=== PATIENT | male | born 1945 | race Caucasian/White ===

== ENCOUNTER 2020-12-10 22:27 | Inpatient (IN) | payer MEDICARE ==
[~2020-12-10] VITALS: Ht 177.8 cm; Wt 86.8 kg
[2020-12-11] MEDS ORDERED: ONDANSETRON 4MG INJ IVP ONE (00:30)
[2020-12-11] MEDS ORDERED: 0.9%NACL 1000ML 1,000 ML IV ONE ×2 (00:30→04:00)
[2020-12-11] MEDS ORDERED: MORPHINE 2 MG SYG IVP ONE (00:30)
[2020-12-11 00:45] LABS: BASOPHILS % (AUTO) 0.7 % (0.0-5.0); EOSINOPHILS % (AUTO) 0.1 % (0.0-8.0); HEMATOCRIT 36.7 % (42-54); LYMPHOCYTES % (AUTO) 15.9 % (21.0-51.0); MEAN CORPUSCULAR HEMOGLOBIN 30.5 pg (27.0-33.0); MEAN CORPUSCULAR HGB CONC 33.8 g/dL (32.0-36.0); MEAN CORPUSCULAR VOLUME 90.2 fL (79-99); MONOCYTES % (AUTO) 4.5 % (3.0-13.0); NEUTROPHILS % (AUTO) 78.5 % (40.0-77.0); PLATELET COUNT (AUTO) 339 K/uL (130-400); RED BLOOD CELL COUNT(AUTO) 4.07 MIL/uL (4.50-6.20); RED CELL DISTRIBUTION WIDTH 12.6 % (11.0-15.5); WHITE BLOOD COUNT (AUTO) 7.3 K/uL (4.8-10.8)
[2020-12-11 01:01] LABS: CREATININE 1.6 mg/dL (0.5-1.5); POTASSIUM 4.2 mmol/L (3.5-5.1)
[2020-12-11 01:05] LABS: ALBUMIN 3.5 g/dL (3.5-5.0); BILIRUBIN,TOTAL 0.5 mg/dL (0.2-1.0)
[2020-12-11 02:34] LABS: APPEARANCE,URINE Clear (CLEAR); BILIRUBIN,URINE Negative (NEGATIVE); COLOR,URINE Dark Yellow (YELLOW); GLUCOSE, URINE (UA) Negative (NEGATIVE); KETONES,URINE 40 mg/dL (NEGATIVE); LEUKOCYTE ESTERASE ,URINE Negative (NEGATIVE); NITRATE,URINE Negative (NEGATIVE); OCCULT BLOOD,URINE Negative (NEGATIVE); PROTEIN,URINE POS 1+ mg/dL (NEGATIVE)
[2020-12-11 02:49] LABS: BACTERIA,URINE None Seen /HPF (None Seen); RBC,URINE 0-1 /HPF (0-1); SQUAMOUS EPITHELIAL CELL,UR Few /HPF (0-2); WBC,URINE None Seen /HPF (0-1)
[2020-12-11 02:50] LABS: HYALINE CASTS, URINE 0-1 /LPF (0-1 /LPF)
[2020-12-11] MEDS ORDERED: ACETAMINOPHEN 325 MG TAB PO PRN ×2 (03:30)
[2020-12-11] MEDS ORDERED: MORPHINE 2 MG SYG IV PRN (03:30)
[2020-12-11] MEDS: 0.9%NACL 1000ML 1,000 ML IV SCH ×3 (03:44→23:30)
[2020-12-11] MEDS: ONDANSETRON 4MG INJ IV PRN ×2 (05:14→20:05)
[2020-12-11] MEDS ORDERED: MONT-39 PO (05:32)
[2020-12-11 07:27] LABS: HEMATOCRIT 37.1 % (42-54); MEAN CORPUSCULAR HEMOGLOBIN 30.7 pg (27.0-33.0); MEAN CORPUSCULAR HGB CONC 33.2 g/dL (32.0-36.0); MEAN CORPUSCULAR VOLUME 92.5 fL (79-99); RED BLOOD CELL COUNT(AUTO) 4.01 MIL/uL (4.50-6.20); RED CELL DISTRIBUTION WIDTH 12.6 % (11.0-15.5); WHITE BLOOD COUNT (AUTO) 8.1 K/uL (4.8-10.8)
[2020-12-11 07:37] LABS: CREATININE 1.4 mg/dL (0.5-1.5); POTASSIUM 3.8 mmol/L (3.5-5.1)
[2020-12-11] MEDS ORDERED: CHLORDIAZEPOXIDE HCL 25 MG CAP PO PRN (10:00)
[2020-12-11] MEDS ORDERED: LORAZEPAM 2 MG/ML 1 ML VIAL IVP PRN (10:00)
[2020-12-11 10:29] LABS: INR 0.99 (0.85-1.15); PROTHROMBIN TIME 10.8 SEC (9.6-11.6)
[2020-12-11] MEDS ORDERED: GLUCAGON 1MG KIT 1 MG ML IM PRN (10:30)
[2020-12-11] MEDS ORDERED: IPRATROPIUM/ALBUTEROL SULFATE 3 ML SOLUTION IH PRN (10:30)
[2020-12-11] MEDS ORDERED: DEXTROSE 50%-WATER 50 ML DISP.SYRIN IV PRN (10:30)
[2020-12-11] MEDS ORDERED: LIDOCAINE HCL-MPF 1% 2ML VIAL IV PRN (10:30)
[2020-12-11] MEDS ORDERED: THIAMINE HCL 100 MG/ML 2ML VIAL IVP SCH (10:30)
[2020-12-11 10:31] LABS: PARTIAL THROMBOPLASTIN TIME 28.5 SEC (26.3-35.5)
[2020-12-11] MEDS ORDERED: PANTOPRAZOLE 40 MG/VIAL ONE (10:55)
[2020-12-11] MEDS: M.V.I. IV [ADULT] 10 ML, FOLIC ACID 1 MG, THIAMINE HCL 100 MG in 0.9%NACL 1000ML 1,000 ML IV SCH (11:00)
[2020-12-11] MEDS: ZOSYN 3.375GM +NS 50ML IV SCH ×2 (11:22→18:34)
[2020-12-11] MEDS ORDERED: PEG 3350/NA SULF,BICARB,CL/KCL 4000 ML SOLN PO ONE (16:00)
[2020-12-11] MEDS ORDERED: 0.9%NACL 50ML 50 ML IV ONE (18:27)
[2020-12-11 22:20] VITALS: BP 146/62
[2020-12-12] VITALS (19 sets, daily range): BP systolic 117–159; BP diastolic 46–70
[2020-12-12] MEDS: ZOSYN 3.375GM +NS 50ML IV SCH ×2 (02:55→14:00)
[2020-12-12] MEDS: ONDANSETRON 4MG INJ IV PRN (05:58)
[2020-12-12] MEDS: THIAMINE HCL 100 MG/ML 2ML VIAL IVP SCH (08:58)
[2020-12-12] MEDS: PANTOPRAZOLE 40 MG/VIAL IVP SCH (08:58)
[2020-12-12] MEDS: M.V.I. IV [ADULT] 10 ML, FOLIC ACID 1 MG, THIAMINE HCL 100 MG in 0.9%NACL 1000ML 1,000 ML IV SCH (09:25)
[2020-12-12] MEDS ORDERED: PROPOFOL 10 MG/ML 20ML VIAL IV ONE (12:28)
[2020-12-12] MEDS: 0.9%NACL 1000ML 1,000 ML IV SCH ×2 (14:01→19:30)
[2020-12-13] VITALS: BP 127/49
[2020-12-13] MEDS: ZOSYN 3.375GM +NS 50ML IV SCH ×3 (02:33→17:12)
[2020-12-13 04:00] VITALS: BP 136/54
[2020-12-13 05:17] LABS: BASOPHILS % (AUTO) 0.6 % (0.0-5.0); EOSINOPHILS % (AUTO) 0.5 % (0.0-8.0); HEMATOCRIT 32.7 % (42-54); LYMPHOCYTES % (AUTO) 21.6 % (21.0-51.0); MEAN CORPUSCULAR HEMOGLOBIN 30.4 pg (27.0-33.0); MEAN CORPUSCULAR HGB CONC 33.3 g/dL (32.0-36.0); MEAN CORPUSCULAR VOLUME 91.1 fL (79-99); MONOCYTES % (AUTO) 10.6 % (3.0-13.0); NEUTROPHILS % (AUTO) 66.4 % (40.0-77.0); PLATELET COUNT (AUTO) 300 K/uL (130-400); RED BLOOD CELL COUNT(AUTO) 3.59 MIL/uL (4.50-6.20); WHITE BLOOD COUNT (AUTO) 6.3 K/uL (4.8-10.8)
[2020-12-13 05:29] LABS: CREATININE 1.5 mg/dL (0.5-1.5); POTASSIUM 3.7 mmol/L (3.5-5.1)
[2020-12-13 08:00] VITALS: BP 95/56
[2020-12-13] MEDS: M.V.I. IV [ADULT] 10 ML, FOLIC ACID 1 MG, THIAMINE HCL 100 MG in 0.9%NACL 1000ML 1,000 ML IV SCH (09:50)
[2020-12-13] MEDS: ENOXAPARIN SODIUM 40 MG/0.4 ML SYRINGE SQ SCH (09:50)
[2020-12-13] MEDS: THIAMINE HCL 100 MG/ML 2ML VIAL IVP SCH (10:23)
[2020-12-13] MEDS: PANTOPRAZOLE 40 MG/VIAL IVP SCH (10:23)
[2020-12-13] MEDS: 0.9%NACL 1000ML 1,000 ML IV SCH ×2 (10:30→17:08)
[2020-12-13 12:00] VITALS: BP 146/54
[2020-12-13 16:00] VITALS: BP 139/54
[2020-12-13 20:00] VITALS: BP 149/57
[2020-12-14] VITALS: BP 143/58
[2020-12-14] MEDS: 0.9%NACL 1000ML 1,000 ML IV SCH ×2 (01:30→10:24)
[2020-12-14] MEDS: ZOSYN 3.375GM +NS 50ML IV SCH ×3 (03:42→17:47)
[2020-12-14 04:00] VITALS: BP 141/54
[2020-12-14 08:00] VITALS: BP 132/67
[2020-12-14] MEDS: ENOXAPARIN SODIUM 40 MG/0.4 ML SYRINGE SQ SCH (08:42)
[2020-12-14] MEDS: PANTOPRAZOLE 40 MG/VIAL IVP SCH (08:42)
[2020-12-14] MEDS: THIAMINE HCL 100 MG/ML 2ML VIAL IVP SCH (08:42)
[2020-12-14] MEDS: M.V.I. IV [ADULT] 10 ML, FOLIC ACID 1 MG, THIAMINE HCL 100 MG in 0.9%NACL 1000ML 1,000 ML IV SCH (09:09)
[2020-12-14] MEDS ORDERED: PHARMACY COMMUNICATION MISC SCH (11:30)
[2020-12-14 12:00] VITALS: BP 136/51
[2020-12-14] MEDS ORDERED: CLINIMIX-E4.25%AA/D5+LYT2000ML 2,000 ML IV SCH (12:30)
[2020-12-14 16:00] VITALS: BP 147/53
[2020-12-14 20:00] VITALS: BP 117/51
[2020-12-14] MEDS: ONDANSETRON 4MG INJ IV PRN (22:45)
[2020-12-15] VITALS (7 sets, daily range): BP systolic 138–148; BP diastolic 56–85
[2020-12-15] MEDS ORDERED: METOCLOPRAMIDE 10 MG/2 ML VIAL ONE (00:39)
[2020-12-15] MEDS: METOCLOPRAMIDE 10 MG/2 ML VIAL IVP SCH ×3 (01:00→17:03)
[2020-12-15] MEDS: ZOSYN 3.375GM +NS 50ML IV SCH ×3 (02:26→17:03)
[2020-12-15 04:34] LABS: HEMATOCRIT 31.2 % (42-54); MEAN CORPUSCULAR HEMOGLOBIN 30.7 pg (27.0-33.0); MEAN CORPUSCULAR VOLUME 93.1 fL (79-99); RED BLOOD CELL COUNT(AUTO) 3.35 MIL/uL (4.50-6.20); RED CELL DISTRIBUTION WIDTH 13.2 % (11.0-15.5); WHITE BLOOD COUNT (AUTO) 3.9 K/uL (4.8-10.8)
[2020-12-15 04:56] LABS: CREATININE 1.4 mg/dL (0.5-1.5); POTASSIUM 3.7 mmol/L (3.5-5.1)
[2020-12-15] MEDS: PANTOPRAZOLE 40 MG/VIAL IVP SCH (08:44)
[2020-12-15] MEDS: THIAMINE HCL 100 MG/ML 2ML VIAL IVP SCH (08:44)
[2020-12-15] MEDS: ENOXAPARIN SODIUM 40 MG/0.4 ML SYRINGE SQ SCH (08:45)
[2020-12-15] MEDS ORDERED: CLINIMIX-E4.25%AA/D5+LYT2000ML 2,000 ML IV ONE (12:30)
[2020-12-15] MEDS: 0.9%NACL 1000ML 1,000 ML IV SCH (20:00)
[2020-12-16] VITALS (15 sets, daily range): BP systolic 94–167; BP diastolic 45–72
[2020-12-16] MEDS: METOCLOPRAMIDE 10 MG/2 ML VIAL IVP SCH ×3 (00:24→18:01)
[2020-12-16] MEDS: ZOSYN 3.375GM +NS 50ML IV SCH ×3 (03:01→18:01)
[2020-12-16] MEDS: 0.9%NACL 1000ML 1,000 ML IV SCH ×2 (03:38→18:02)
[2020-12-16 04:22] LABS: HEMATOCRIT 33.3 % (42-54); MEAN CORPUSCULAR HEMOGLOBIN 30.9 pg (27.0-33.0); MEAN CORPUSCULAR HGB CONC 33.3 g/dL (32.0-36.0); MEAN CORPUSCULAR VOLUME 92.8 fL (79-99); RED BLOOD CELL COUNT(AUTO) 3.59 MIL/uL (4.50-6.20); RED CELL DISTRIBUTION WIDTH 13.2 % (11.0-15.5); WHITE BLOOD COUNT (AUTO) 3.4 K/uL (4.8-10.8)
[2020-12-16 04:33] LABS: CREATININE 1.3 mg/dL (0.5-1.5); POTASSIUM 3.7 mmol/L (3.5-5.1)
[2020-12-16] MEDS: THIAMINE HCL 100 MG/ML 2ML VIAL IVP SCH (09:55)
[2020-12-16] MEDS: PANTOPRAZOLE 40 MG/VIAL IVP SCH (09:55)
[2020-12-16] MEDS ORDERED: LACTATED RINGERS 1000ML 1,000 ML IV ONE (11:40)
[2020-12-16] MEDS ORDERED: LIDOCAINE PF 100MG/5ML (2%) SYRINGE 5ML ONE (12:05)
[2020-12-16] MEDS ORDERED: SUCCINYLCHOLINE CHLORIDE 20 MG/ML 10 ML VIAL ONE (12:05)
[2020-12-16] MEDS ORDERED: MIDAZOLAM HCL 1 MG/ML 2ML VIAL ONE (12:05)
[2020-12-16] MEDS ORDERED: PROPOFOL 10 MG/ML 20ML VIAL IV ONE (12:05)
[2020-12-16] MEDS ORDERED: ONDANSETRON 4MG INJ ONE (12:05)
[2020-12-16] MEDS ORDERED: FENTANYL CITRATE PF 50 MCG/1 ML 2ML VIAL ONE (12:06)
[2020-12-16] MEDS ORDERED: ROCURONIUM 10MG/1ML SYR 10 MG/ML ML ONE ×2 (12:06→13:29)
[2020-12-16] MEDS ORDERED: ALBUMIN (HUMAN) 5% 250 ML IV ONE (12:53)
[2020-12-16] MEDS ORDERED: CEFAZOLIN SODIUM 1 GM VIAL ONE ×2 (13:26→13:30)
[2020-12-16] MEDS ORDERED: GENTAMICIN SULFATE 80 MG/2 ML VIAL ONE (13:36)
[2020-12-16 14:03] LABS: ABG BASE EXCESS -1.5 mmol/L (-2.0-3.0); ABG HCO3 22.6 mmol/L (21.0-28.0); ABG OXYGEN SATURATION 98.9 % (95.0-99.0); ABG PCO2 36 mmHg (35-48)
[2020-12-16] MEDS ORDERED: PROPOFOL 1000 MG/100 ML 100 ML IV ONE (15:09)
[2020-12-16] MEDS ORDERED: ONDANSETRON 4MG INJ IVP PRN (17:30)
[2020-12-16] MEDS ORDERED: NOREPINEPHRIN 4MG/NS 250ML 250 ML IV SCH (17:30)
[2020-12-16] MEDS ORDERED: METRONIDAZOLE 500 MG TABLET PO SCH (18:00)
[2020-12-16 18:14] LABS: ABG BASE EXCESS -5.7 mmol/L (-2.0-3.0); ABG HCO3 19.7 mmol/L (21.0-28.0); ABG OXYGEN SATURATION 94.7 % (95.0-99.0); ABG PCO2 38 mmHg (35-48)
[2020-12-16 18:35] LABS: CREATININE 1.5 mg/dL (0.5-1.5); MAGNESIUM 2.1 mg/dL (1.80-2.40); POTASSIUM 4.3 mmol/L (3.5-5.1)
[2020-12-16] MEDS: METRONIDAZOLE 500 MG TABLET PO SCH (20:00)
[2020-12-16] MEDS ORDERED: METRONIDAZOLE 500MG/100ML BAG 100 ML IVPB SCH ×2 (22:00)
[2020-12-17] VITALS (24 sets, daily range): BP systolic 101–164; BP diastolic 44–75
[2020-12-17] MEDS: ZOSYN 3.375GM +NS 50ML IV SCH ×3 (01:32→23:26)
[2020-12-17] MEDS: METOCLOPRAMIDE 10 MG/2 ML VIAL IVP SCH ×3 (01:33→17:50)
[2020-12-17] MEDS: PROPOFOL 1000 MG/100 ML 100 ML IV SCH ×5 (02:47→23:28)
[2020-12-17] MEDS: METRONIDAZOLE 500 MG TABLET PO SCH ×3 (03:41→20:00)
[2020-12-17] MEDS: 0.9%NACL 1000ML 1,000 ML IV SCH ×5 (03:41→23:27)
[2020-12-17 04:21] LABS: BASOPHILS % (AUTO) 0.4 % (0.0-5.0); HEMATOCRIT 35.5 % (42-54); LYMPHOCYTES % (AUTO) 14.1 % (21.0-51.0); MEAN CORPUSCULAR HEMOGLOBIN 30.8 pg (27.0-33.0); MEAN CORPUSCULAR HGB CONC 33.2 g/dL (32.0-36.0); MEAN CORPUSCULAR VOLUME 92.7 fL (79-99); MONOCYTES % (AUTO) 8.7 % (3.0-13.0); NEUTROPHILS % (AUTO) 76.1 % (40.0-77.0); PLATELET COUNT (AUTO) 309 K/uL (130-400); RED BLOOD CELL COUNT(AUTO) 3.83 MIL/uL (4.50-6.20); RED CELL DISTRIBUTION WIDTH 13.5 % (11.0-15.5); WHITE BLOOD COUNT (AUTO) 7.2 K/uL (4.8-10.8)
[2020-12-17 04:57] LABS: CREATININE 2.4 mg/dL (0.5-1.5); PHOSPHORUS 4.9 mg/dL (2.5-4.9); POTASSIUM 4.5 mmol/L (3.5-5.1)
[2020-12-17] MEDS: PANTOPRAZOLE 40 MG/VIAL IVP SCH (09:09)
[2020-12-17] MEDS: FLUCONAZOLE 200 MG/NS 100 ML 100 ML IV SCH (09:26)
[2020-12-17] MEDS ORDERED: 0.9%NACL 100ML 100 ML ONE (10:23)
[2020-12-17] MEDS: THIAMINE HCL 100 MG/ML 2ML VIAL IVP SCH (10:24)
[2020-12-17] MEDS ORDERED: MAGNESIUM CITRATE 296 ML SOLUTION PO SCH (12:30)
[2020-12-17] MEDS ORDERED: ALBUMIN (HUMAN) 5% 500 ML IV SCH (12:30)
[2020-12-17] MEDS ORDERED: LACTULOSE 20 GM/30 ML UDCUP PO SCH ×2 (14:30→19:00)
[2020-12-17] MEDS ORDERED: ZOSYN 3.375GM+NS 50ML 50 ML ONE (23:01)
[2020-12-18] VITALS (21 sets, daily range): BP systolic 84–136; BP diastolic 36–65
[2020-12-18] MEDS: 0.9%NACL 1000ML 1,000 ML IV SCH ×3 (02:00→05:33)
[2020-12-18] MEDS: METOCLOPRAMIDE 10 MG/2 ML VIAL IVP SCH ×3 (03:23→16:06)
[2020-12-18 03:55] LABS: HEMATOCRIT 25.7 % (42-54); MEAN CORPUSCULAR HGB CONC 32.7 g/dL (32.0-36.0); MEAN CORPUSCULAR VOLUME 94.8 fL (79-99); RED BLOOD CELL COUNT(AUTO) 2.71 MIL/uL (4.50-6.20); WHITE BLOOD COUNT (AUTO) 4.4 K/uL (4.8-10.8)
[2020-12-18] MEDS: METRONIDAZOLE 500 MG TABLET PO SCH (04:00)
[2020-12-18 04:09] LABS: CREATININE 3.6 mg/dL (0.5-1.5); MAGNESIUM 1.9 mg/dL (1.80-2.40); PHOSPHORUS 6.2 mg/dL (2.5-4.9); POTASSIUM 3.1 mmol/L (3.5-5.1)
[2020-12-18] MEDS: POTASSIUM CHLORIDE 20MEQ/100ML 100 ML IV PRN ×2 (05:16→05:33)
[2020-12-18 08:11] LABS: ABG BASE EXCESS -12.3 mmol/L (-2.0-3.0); ABG HCO3 12.6 mmol/L (21.0-28.0); ABG OXYGEN SATURATION 98.3 % (95.0-99.0); ABG PCO2 26 mmHg (35-48)
[2020-12-18] MEDS: PROPOFOL 1000 MG/100 ML 100 ML IV SCH ×4 (09:20→23:20)
[2020-12-18] MEDS: FLUCONAZOLE 200 MG/NS 100 ML 100 ML IV SCH (09:49)
[2020-12-18] MEDS: PANTOPRAZOLE 40 MG/VIAL IVP SCH (09:49)
[2020-12-18] MEDS: THIAMINE HCL 100 MG/ML 2ML VIAL IVP SCH (09:50)
[2020-12-18] MEDS: SODIUM BICARB 8.4% 50ML SYRING 150 MEQ in DEXTROSE 5%-WATER 850 ML IVP SCH ×2 (09:50→22:30)
[2020-12-18] MEDS ORDERED: ZOSYN 3.375GM+NS 50ML 50 ML ONE (12:34)
[2020-12-18] MEDS ORDERED: 0.9%NACL 50ML 50 ML IV ONE (12:34)
[2020-12-18] MEDS: ZOSYN 3.375GM +NS 50ML IV SCH (12:36)
[2020-12-18] MEDS: FENTANYL 2500MCG+NS 250ML IV.SOLN IV SCH (15:56)
[2020-12-18] MEDS ORDERED: LIDOCAINE PF 100MG/5ML (2%) SYRINGE 5ML ONE (17:25)
[2020-12-18] MEDS ORDERED: ROCURONIUM 10MG/1ML SYR 10 MG/ML ML ONE (17:26)
[2020-12-18] MEDS ORDERED: PROPOFOL 10 MG/ML 20ML VIAL IV ONE (17:26)
[2020-12-18] MEDS ORDERED: ONDANSETRON 4MG INJ ONE (17:26)
[2020-12-18] MEDS ORDERED: FENTANYL CITRATE PF 50 MCG/1 ML 5ML AMP IV ONE (17:27)
[2020-12-18 18:52] LABS: ABG BASE EXCESS -11.4 mmol/L (-2.0-3.0); ABG HCO3 14.9 mmol/L (21.0-28.0); ABG OXYGEN SATURATION 98.4 % (95.0-99.0); ABG PCO2 35 mmHg (35-48)
[2020-12-18] MEDS ORDERED: POTASSIUM CHLORIDE 20MEQ/100ML 100 ML IV ONE (18:56)
[2020-12-18] MEDS ORDERED: CEFAZOLIN SODIUM 1 GM VIAL ONE (19:00)
[2020-12-18] MEDS ORDERED: GENTAMICIN SULFATE 80 MG/2 ML VIAL ONE ×2 (19:00→19:53)
[2020-12-18] MEDS ORDERED: POTASSIUM CHLORIDE 20MEQ/100ML 200 ML IV ONE (19:18)
[2020-12-18] MEDS ORDERED: SODIUM BICARB 8.4% 50ML SYRINGE ONE ×2 (20:01→21:19)
[2020-12-18 20:12] LABS: ABG BASE EXCESS -9.8 mmol/L (-2.0-3.0); ABG HCO3 18.8 mmol/L (21.0-28.0); ABG OXYGEN SATURATION 89.7 % (95.0-99.0); ABG PCO2 54 mmHg (35-48)
[2020-12-18] MEDS ORDERED: PHENYLEPHRINE HCL 10 MG/ML 1ML VIAL IV ONE (21:16)
[2020-12-18 21:17] LABS: ABG BASE EXCESS -10.1 mmol/L (-2.0-3.0); ABG HCO3 17.9 mmol/L (21.0-28.0); ABG OXYGEN SATURATION 94.2 % (95.0-99.0); ABG PCO2 49 mmHg (35-48)
[2020-12-18] MEDS ORDERED: SODIUM BICARB 50MEQ 50ML VIAL 50 ML ONE ×2 (21:21→21:26)
[2020-12-18] MEDS ORDERED: FENTANYL CITRATE PF 50 MCG/1 ML 2ML VIAL ONE (21:42)
[2020-12-18] MEDS ORDERED: FUROSEMIDE 40MG VIAL ONE (22:28)
[2020-12-18 22:39] LABS: ABG BASE EXCESS -3.5 mmol/L (-2.0-3.0); ABG OXYGEN SATURATION 98.1 % (95.0-99.0); ABG PCO2 48 mmHg (35-48)
[2020-12-18 23:10] LABS: HEMATOCRIT 33.5 % (42-54); MEAN CORPUSCULAR HEMOGLOBIN 30.7 pg (27.0-33.0); MEAN CORPUSCULAR HGB CONC 32.8 g/dL (32.0-36.0); MEAN CORPUSCULAR VOLUME 93.6 fL (79-99); RED BLOOD CELL COUNT(AUTO) 3.58 MIL/uL (4.50-6.20); RED CELL DISTRIBUTION WIDTH 14.6 % (11.0-15.5); WHITE BLOOD COUNT (AUTO) 3.2 K/uL (4.8-10.8)
[2020-12-18 23:25] LABS: ALBUMIN 1.2 g/dL (3.5-5.0); BILIRUBIN,TOTAL 1.7 mg/dL (0.2-1.0); CREATININE 3.7 mg/dL (0.5-1.5); POTASSIUM 3.6 mmol/L (3.5-5.1); TOTAL PROTEIN, SERUM 3.7 g/dL (6.0-8.3)
[2020-12-19] VITALS (34 sets, daily range): BP systolic 88–174; BP diastolic 44–112
[2020-12-19 00:08] LABS: ABG BASE EXCESS -5.1 mmol/L (-2.0-3.0); ABG HCO3 20.2 mmol/L (21.0-28.0); ABG OXYGEN SATURATION 96.7 % (95.0-99.0); ABG PCO2 39 mmHg (35-48)
[2020-12-19] MEDS ORDERED: SODIUM BICARB 50MEQ 50ML VIAL 100 ML ONE (01:11)
[2020-12-19] MEDS ORDERED: SODIUM BICARB 50MEQ 50ML VIAL IV STA (01:11)
[2020-12-19] MEDS ORDERED: ZOSYN 3.375GM+NS 50ML 50 ML ONE (01:11)
[2020-12-19] MEDS: METOCLOPRAMIDE 10 MG/2 ML VIAL IVP SCH (01:18)
[2020-12-19] MEDS: ZOSYN 3.375GM +NS 50ML IV SCH ×2 (01:18→11:12)
[2020-12-19] MEDS ORDERED: VASOPRESSIN 40 UNITS in 0.9%NACL 50ML 40 ML IV SCH (01:30)
[2020-12-19] MEDS ORDERED: 0.9%NACL 50ML IV SCH (03:00)
[2020-12-19] MEDS ORDERED: CALCIUM GLUC 1GM/10ML VIAL IVPB SCH (03:00)
[2020-12-19] MEDS ORDERED: CALCIUM GLUC 1GM/10ML VIAL IVPB ONE (03:00)
[2020-12-19] MEDS ORDERED: 0.9%NACL 50ML IV ONE (03:00)
[2020-12-19 05:55] LABS: HEMATOCRIT 33.9 % (42-54); MEAN CORPUSCULAR HGB CONC 33.3 g/dL (32.0-36.0); MEAN CORPUSCULAR VOLUME 89.9 fL (79-99); RED BLOOD CELL COUNT(AUTO) 3.77 MIL/uL (4.50-6.20); RED CELL DISTRIBUTION WIDTH 15.1 % (11.0-15.5); WHITE BLOOD COUNT (AUTO) 6.1 K/uL (4.8-10.8)
[2020-12-19 06:09] LABS: ALBUMIN 1.2 g/dL (3.5-5.0); BILIRUBIN,TOTAL 1.7 mg/dL (0.2-1.0); CREATININE 3.9 mg/dL (0.5-1.5); POTASSIUM 3.5 mmol/L (3.5-5.1); TOTAL PROTEIN, SERUM 3.9 g/dL (6.0-8.3)
[2020-12-19] MEDS ORDERED: FUROSEMIDE 100MG VIAL IV SCH (08:00)
[2020-12-19] MEDS ORDERED: DEXTROSE 5 %-0.45 % NACL 1,000 ML IV SCH (08:00)
[2020-12-19] MEDS ORDERED: FUROSEMIDE 40MG VIAL ONE (08:26)
[2020-12-19] MEDS: HEPARIN 5,000 UNIT VIAL SQ SCH ×2 (08:38→20:01)
[2020-12-19] MEDS: PANTOPRAZOLE 40 MG/VIAL IVP SCH (08:38)
[2020-12-19] MEDS: THIAMINE HCL 100 MG/ML 2ML VIAL IVP SCH (08:38)
[2020-12-19] MEDS: FLUCONAZOLE 200 MG/NS 100 ML 100 ML IV SCH (08:38)
[2020-12-19] MEDS ORDERED: BUPIVACAINE/PF 0.25% 30ML VIAL IJ ONE (09:04)
[2020-12-19] MEDS: RENAL DOSE IV SCH ×3 (10:30→18:30)
[2020-12-19] MEDS: PHARMACY COMMUNICATION MISC SCH ×9 (10:30→18:30)
[2020-12-19 11:12] LABS: ABG BASE EXCESS 1.4 mmol/L (-2.0-3.0); ABG HCO3 25.8 mmol/L (21.0-28.0); ABG PCO2 40 mmHg (35-48)
[2020-12-19] MEDS: INSULIN HUMULIN R 100 UNIT/ML 3ML SQ SCH ×2 (11:43→16:04)
[2020-12-19] MEDS ORDERED: M.V.I. IV [ADULT] 10 ML in CLINIMIX-E 5%AA /D15%W 2000ML 2,000 ML IV SCH (12:00)
[2020-12-19] MEDS ORDERED: ALTEPLASE 2MG VIAL 2 MG/VIAL VIAL IVCATH SCH (12:00)
[2020-12-19] MEDS ORDERED: FAT EMULSIONS 20% 250ML 250 ML IV SCH (12:00)
[2020-12-19] MEDS ORDERED: FUROSEMIDE 40MG VIAL IV ONE (18:00)
[2020-12-19 20:18] LABS: CREATININE 4.4 mg/dL (0.5-1.5); POTASSIUM 3.4 mmol/L (3.5-5.1)
[2020-12-19 20:23] LABS: ALBUMIN 1.3 g/dL (3.5-5.0); BILIRUBIN,TOTAL 1.5 mg/dL (0.2-1.0); MAGNESIUM 1.9 mg/dL (1.80-2.40); TOTAL PROTEIN, SERUM 4.4 g/dL (6.0-8.3)
[2020-12-19] MEDS ORDERED: POTASSIUM CHLORIDE 10MEQ/100ML 10 MEQ/100 ML ML IV SCH (21:00)
[2020-12-19] MEDS ORDERED: MAGNESIUM 2GM PREMIX 50ML 50 ML IV SCH (21:00)
[2020-12-19] MEDS ORDERED: MAGNESIUM 2GM PREMIX 50ML 50 ML IV ONE (21:06)
[2020-12-19] MEDS ORDERED: POTASSIUM CHLORIDE 10MEQ/100ML 100 ML IV ONE (21:06)
[2020-12-20] VITALS (22 sets, daily range): BP systolic 101–181; BP diastolic 40–102
[2020-12-20] MEDS ORDERED: ZOSYN 3.375GM+NS 50ML 50 ML ONE (01:23)
[2020-12-20] MEDS: ZOSYN 3.375GM +NS 50ML IV SCH (01:25)
[2020-12-20] MEDS: INSULIN HUMULIN R 100 UNIT/ML 3ML SQ SCH ×5 (01:26→23:50)
[2020-12-20] MEDS: FENTANYL 2500MCG+NS 250ML IV.SOLN IV SCH (05:40)
[2020-12-20 05:55] LABS: MEAN CORPUSCULAR HEMOGLOBIN 30.5 pg (27.0-33.0); MEAN CORPUSCULAR HGB CONC 33.2 g/dL (32.0-36.0); MEAN CORPUSCULAR VOLUME 91.9 fL (79-99); RED BLOOD CELL COUNT(AUTO) 3.7 MIL/uL (4.50-6.20); RED CELL DISTRIBUTION WIDTH 15.3 % (11.0-15.5); WHITE BLOOD COUNT (AUTO) 8.6 K/uL (4.8-10.8)
[2020-12-20 06:16] LABS: ALBUMIN 1.2 g/dL (3.5-5.0); BILIRUBIN,TOTAL 1.3 mg/dL (0.2-1.0); CREATININE 4.8 mg/dL (0.5-1.5); MAGNESIUM 2.6 mg/dL (1.80-2.40); PHOSPHORUS 6.8 mg/dL (2.5-4.9); POTASSIUM 3.8 mmol/L (3.5-5.1); TOTAL PROTEIN, SERUM 4.5 g/dL (6.0-8.3)
[2020-12-20] MEDS: MEROPENEM 500 MG VIAL IVP SCH ×2 (06:48→17:13)
[2020-12-20 07:02] LABS: APPEARANCE,URINE Clear (CLEAR); BILIRUBIN,URINE Negative (NEGATIVE); COLOR,URINE Yellow (YELLOW); GLUCOSE, URINE (UA) Negative (NEGATIVE); KETONES,URINE Negative (NEGATIVE); LEUKOCYTE ESTERASE ,URINE Negative (NEGATIVE); NITRATE,URINE Negative (NEGATIVE); OCCULT BLOOD,URINE Small (NEGATIVE); PROTEIN,URINE Trace mg/dL (NEGATIVE); UROBILINOGEN,URINE 0.2 mg/dL (0.2-1.0)
[2020-12-20 07:12] LABS: BACTERIA,URINE Few /HPF (None Seen); RBC,URINE 0-1 /HPF (0-1); SQUAMOUS EPITHELIAL CELL,UR 0-2 /HPF (0-2); WBC,URINE 0-1 /HPF (0-1)
[2020-12-20 07:13] LABS: HYALINE CASTS, URINE 0-1 /LPF (0-1 /LPF)
[2020-12-20] MEDS ORDERED: FUROSEMIDE 40MG VIAL IV SCH (08:00)
[2020-12-20] MEDS: FLUCONAZOLE 200 MG/NS 100 ML 100 ML IV SCH (09:12)
[2020-12-20] MEDS: LINEZOLID 600 MG/ISO-OSM 300 ML IV SCH ×2 (09:13→17:13)
[2020-12-20] MEDS: THIAMINE HCL 100 MG/ML 2ML VIAL IVP SCH (09:13)
[2020-12-20] MEDS: PANTOPRAZOLE 40 MG/VIAL IVP SCH (09:13)
[2020-12-20] MEDS: HEPARIN 5,000 UNIT VIAL SQ SCH ×2 (09:14→20:26)
[2020-12-20] MEDS ORDERED: IOHEXOL-350 75 ML VIAL IV ONE (13:08)
[2020-12-20 19:30] LABS: ALBUMIN 1.1 g/dL (3.5-5.0); BILIRUBIN,TOTAL 1.4 mg/dL (0.2-1.0); CREATININE 5.2 mg/dL (0.5-1.5); MAGNESIUM 2.6 mg/dL (1.80-2.40); POTASSIUM 3.8 mmol/L (3.5-5.1); TOTAL PROTEIN, SERUM 4.2 g/dL (6.0-8.3)
[2020-12-20] MEDS ORDERED: M.V.I. IV [ADULT] 10 ML in CLINIMIX-E 5%AA /D15%W 2000ML 2,000 ML IV SCH (20:00)
[2020-12-20] MEDS: HYDROMORPHONE 1 MG INJ IVP PRN (20:38)
[2020-12-20] MEDS: POTASSIUM CHLORIDE 20MEQ/100ML 100 ML IV PRN (20:43)
[2020-12-20] MEDS ORDERED: METOPROLOL TARTRATE 1 MG/ML 5ML VIAL IV ONE ×2 (21:14→21:30)
[2020-12-20] MEDS ORDERED: METOPROLOL TARTRATE 1 MG/ML 5ML VIAL IV PRN (21:30)
[2020-12-21] VITALS (23 sets, daily range): BP systolic 110–180; BP diastolic 39–92
[2020-12-21 00:17] LABS: MAGNESIUM 2.6 mg/dL (1.80-2.40); POTASSIUM 4.1 mmol/L (3.5-5.1)
[2020-12-21] MEDS ORDERED: PROPOFOL 1000 MG/100 ML 100 ML IV SCH (03:00)
[2020-12-21] MEDS: PROPOFOL 1000 MG/100 ML 100 ML IV SCH (03:40)
[2020-12-21 04:24] LABS: HEMATOCRIT 32.6 % (42-54); MEAN CORPUSCULAR HEMOGLOBIN 29.8 pg (27.0-33.0); MEAN CORPUSCULAR HGB CONC 32.2 g/dL (32.0-36.0); MEAN CORPUSCULAR VOLUME 92.6 fL (79-99); RED BLOOD CELL COUNT(AUTO) 3.52 MIL/uL (4.50-6.20); RED CELL DISTRIBUTION WIDTH 15.3 % (11.0-15.5); WHITE BLOOD COUNT (AUTO) 7.4 K/uL (4.8-10.8)
[2020-12-21 04:46] LABS: ALBUMIN 1.2 g/dL (3.5-5.0); BILIRUBIN,TOTAL 1.5 mg/dL (0.2-1.0); CREATININE 5.5 mg/dL (0.5-1.5); MAGNESIUM 2.6 mg/dL (1.80-2.40); PHOSPHORUS 7.7 mg/dL (2.5-4.9); POTASSIUM 4.1 mmol/L (3.5-5.1); TOTAL PROTEIN, SERUM 4.6 g/dL (6.0-8.3)
[2020-12-21] MEDS: MEROPENEM 500 MG VIAL IVP SCH ×2 (06:18→19:57)
[2020-12-21] MEDS: INSULIN HUMULIN R 100 UNIT/ML 3ML SQ SCH ×3 (06:23→18:00)
[2020-12-21] MEDS: HYDROMORPHONE 0.5 MG SYG (0.5MG/0.5ML) IVP SCH (07:30)
[2020-12-21 08:14] LABS: ABG PCO2 46 mmHg (35-48)
[2020-12-21 08:15] LABS: ABG BASE EXCESS -0.4 mmol/L (-2.0-3.0); ABG HCO3 25.4 mmol/L (21.0-28.0); ABG OXYGEN SATURATION 97.6 % (95.0-99.0)
[2020-12-21] MEDS: PANTOPRAZOLE 40 MG/VIAL IVP SCH (08:47)
[2020-12-21] MEDS: LINEZOLID 600 MG/ISO-OSM 300 ML IV SCH ×2 (08:47→19:57)
[2020-12-21] MEDS: FLUCONAZOLE 200 MG/NS 100 ML 100 ML IV SCH (08:47)
[2020-12-21] MEDS: HEPARIN 5,000 UNIT VIAL SQ SCH ×2 (08:50→19:59)
[2020-12-21] MEDS: THIAMINE HCL 100 MG/ML 2ML VIAL IVP SCH (08:52)
[2020-12-21] MEDS: HYDROMORPHONE 1 MG INJ IVP PRN ×2 (14:17→21:26)
[2020-12-21] MEDS ORDERED: FUROSEMIDE 20MG VIAL IV ONE (15:00)
[2020-12-21] MEDS ORDERED: FUROSEMIDE 20MG VIAL ONE (16:21)
[2020-12-21] MEDS ORDERED: M.V.I. IV [ADULT] 10 ML in CLINIMIX-E 5%AA /D15%W 2000ML 2,000 ML IV SCH (17:30)
[2020-12-21] MEDS ORDERED: 0.9%NACL 50ML 50 ML IV ONE (19:52)
[2020-12-21] MEDS ORDERED: 0.9% NACL 500ML IV.SOLN 500 ML IV ONE (20:35)
[2020-12-22] VITALS (23 sets, daily range): BP systolic 138–166; BP diastolic 48–87
[2020-12-22 04:12] LABS: HEMATOCRIT 29.2 % (42-54); MEAN CORPUSCULAR HEMOGLOBIN 29.7 pg (27.0-33.0); MEAN CORPUSCULAR HGB CONC 32.9 g/dL (32.0-36.0); MEAN CORPUSCULAR VOLUME 90.4 fL (79-99); RED BLOOD CELL COUNT(AUTO) 3.23 MIL/uL (4.50-6.20); RED CELL DISTRIBUTION WIDTH 14.7 % (11.0-15.5)
[2020-12-22 04:30] LABS: CREATININE 5.7 mg/dL (0.5-1.5); MAGNESIUM 2.6 mg/dL (1.80-2.40); PHOSPHORUS 6.1 mg/dL (2.5-4.9); POTASSIUM 3.7 mmol/L (3.5-5.1)
[2020-12-22] MEDS: MEROPENEM 500 MG VIAL IVP SCH ×2 (05:47→17:18)
[2020-12-22] MEDS: POTASSIUM CHLORIDE 20MEQ/100ML 100 ML IV PRN (05:48)
[2020-12-22] MEDS: INSULIN HUMULIN R 100 UNIT/ML 3ML SQ SCH ×4 (06:00→18:00)
[2020-12-22] MEDS ORDERED: FUROSEMIDE 20MG VIAL IV ONE (06:00)
[2020-12-22] MEDS: HYDROMORPHONE 0.5 MG SYG (0.5MG/0.5ML) IVP SCH ×2 (07:30→14:54)
[2020-12-22 07:52] LABS: ABG BASE EXCESS 1.1 mmol/L (-2.0-3.0); ABG HCO3 25.6 mmol/L (21.0-28.0); ABG OXYGEN SATURATION 96.9 % (95.0-99.0); ABG PCO2 40 mmHg (35-48)
[2020-12-22 07:53] LABS: ABG BASE EXCESS -0.4 mmol/L (-2.0-3.0); ABG HCO3 25.4 mmol/L (21.0-28.0); ABG OXYGEN SATURATION 97.6 % (95.0-99.0); ABG PCO2 46 mmHg (35-48)
[2020-12-22] MEDS: LINEZOLID 600 MG/ISO-OSM 300 ML IV SCH ×2 (08:25→18:03)
[2020-12-22] MEDS: PANTOPRAZOLE 40 MG/VIAL IVP SCH (08:25)
[2020-12-22] MEDS: FLUCONAZOLE 200 MG/NS 100 ML 100 ML IV SCH (08:25)
[2020-12-22] MEDS: THIAMINE HCL 100 MG/ML 2ML VIAL IVP SCH (08:25)
[2020-12-22] MEDS: HEPARIN 5,000 UNIT VIAL SQ SCH ×2 (08:26→19:39)
[2020-12-22] MEDS: PHARMACY COMMUNICATION MISC SCH (08:27)
[2020-12-22] MEDS ORDERED: M.V.I. IV [ADULT] 10 ML in CLINIMIX-E 5%AA /D15%W 2000ML 2,000 ML IV SCH (18:30)
[2020-12-22] MEDS: HYDROMORPHONE 1 MG INJ IVP PRN (22:40)
[2020-12-23] VITALS (24 sets, daily range): BP systolic 127–179; BP diastolic 51–82
[2020-12-23] MEDS: HYDROMORPHONE 1 MG INJ IVP PRN ×5 (01:43→22:45)
[2020-12-23 03:47] LABS: BASOPHILS % (AUTO) 0.2 % (0.0-5.0); HEMATOCRIT 32.7 % (42-54); MEAN CORPUSCULAR HEMOGLOBIN 29.9 pg (27.0-33.0); MEAN CORPUSCULAR HGB CONC 32.4 g/dL (32.0-36.0); MEAN CORPUSCULAR VOLUME 92.4 fL (79-99); MONOCYTES % (AUTO) 2.3 % (3.0-13.0); NEUTROPHILS % (AUTO) 73.6 % (40.0-77.0); PLATELET COUNT (AUTO) 252 K/uL (130-400); RED BLOOD CELL COUNT(AUTO) 3.54 MIL/uL (4.50-6.20); RED CELL DISTRIBUTION WIDTH 14.7 % (11.0-15.5); WHITE BLOOD COUNT (AUTO) 9.2 K/uL (4.8-10.8)
[2020-12-23 04:14] LABS: ALBUMIN 1.2 g/dL (3.5-5.0); BILIRUBIN,TOTAL 2.1 mg/dL (0.2-1.0); CREATININE 6.1 mg/dL (0.5-1.5); MAGNESIUM 2.8 mg/dL (1.80-2.40); PHOSPHORUS 6.3 mg/dL (2.5-4.9); POTASSIUM 4.3 mmol/L (3.5-5.1); TOTAL PROTEIN, SERUM 4.8 g/dL (6.0-8.3)
[2020-12-23] MEDS: MEROPENEM 500 MG VIAL IVP SCH ×2 (05:35→17:01)
[2020-12-23] MEDS: METOPROLOL TARTRATE 1 MG/ML 5ML VIAL IV PRN (05:35)
[2020-12-23] MEDS: INSULIN HUMULIN R 100 UNIT/ML 3ML SQ SCH ×4 (05:45→18:00)
[2020-12-23] MEDS: LINEZOLID 600 MG/ISO-OSM 300 ML IV SCH ×2 (07:46→17:47)
[2020-12-23] MEDS: FLUCONAZOLE 200 MG/NS 100 ML 100 ML IV SCH (07:46)
[2020-12-23] MEDS: THIAMINE HCL 100 MG/ML 2ML VIAL IVP SCH (07:46)
[2020-12-23] MEDS: PANTOPRAZOLE 40 MG/VIAL IVP SCH (07:46)
[2020-12-23] MEDS: HEPARIN 5,000 UNIT VIAL SQ SCH ×2 (07:48→19:58)
[2020-12-23] MEDS ORDERED: M.V.I. IV [ADULT] 10 ML in CLINIMIX-E 5%AA /D15%W 2000ML 2,000 ML IV SCH ×2 (09:00→18:30)
[2020-12-23] MEDS ORDERED: FUROSEMIDE 40MG VIAL IV SCH (16:00)
[2020-12-23] MEDS: IPRATROPIUM/ALBUTEROL SULFATE 3 ML SOLUTION IH SCH (18:00)
[2020-12-24] VITALS (25 sets, daily range): BP systolic 133–185; BP diastolic 42–94
[2020-12-24] MEDS: HYDROMORPHONE 1 MG INJ IVP PRN ×4 (03:56→20:51)
[2020-12-24 04:04] LABS: MEAN CORPUSCULAR HEMOGLOBIN 30.1 pg (27.0-33.0); MEAN CORPUSCULAR HGB CONC 32.9 g/dL (32.0-36.0); MEAN CORPUSCULAR VOLUME 91.4 fL (79-99); RED BLOOD CELL COUNT(AUTO) 3.39 MIL/uL (4.50-6.20); RED CELL DISTRIBUTION WIDTH 14.7 % (11.0-15.5); WHITE BLOOD COUNT (AUTO) 8.6 K/uL (4.8-10.8)
[2020-12-24 04:17] LABS: ALBUMIN 1.1 g/dL (3.5-5.0); BILIRUBIN,TOTAL 1.9 mg/dL (0.2-1.0); CREATININE 5.7 mg/dL (0.5-1.5); POTASSIUM 4.1 mmol/L (3.5-5.1); TOTAL PROTEIN, SERUM 4.6 g/dL (6.0-8.3)
[2020-12-24] MEDS: METOPROLOL TARTRATE 1 MG/ML 5ML VIAL IV PRN (05:09)
[2020-12-24] MEDS: MEROPENEM 500 MG VIAL IVP SCH ×2 (05:16→18:32)
[2020-12-24] MEDS: IPRATROPIUM/ALBUTEROL SULFATE 3 ML SOLUTION IH SCH ×4 (06:00→18:00)
[2020-12-24] MEDS: INSULIN HUMULIN R 100 UNIT/ML 3ML SQ SCH ×4 (06:00→18:00)
[2020-12-24] MEDS: HYDROMORPHONE 0.5 MG SYG (0.5MG/0.5ML) IVP SCH (07:30)
[2020-12-24] MEDS: LINEZOLID 600 MG/ISO-OSM 300 ML IV SCH ×2 (08:24→18:32)
[2020-12-24] MEDS: HEPARIN 5,000 UNIT VIAL SQ SCH ×2 (08:25→20:27)
[2020-12-24] MEDS: THIAMINE HCL 100 MG/ML 2ML VIAL IVP SCH (08:41)
[2020-12-24] MEDS: FLUCONAZOLE 200 MG/NS 100 ML 100 ML IV SCH (08:41)
[2020-12-24] MEDS: PANTOPRAZOLE 40 MG/VIAL IVP SCH (08:41)
[2020-12-24] MEDS: METOCLOPRAMIDE 10 MG/2 ML VIAL IVP SCH ×2 (17:24→20:24)
[2020-12-24] MEDS ORDERED: CLINIMIX-E 5%AA /D15%W 2000ML 2,000 ML IV SCH (21:30)
[2020-12-24] MEDS ORDERED: M.V.I. IV [ADULT] 10 ML in CLINIMIX-E 5%AA /D15%W 2000ML 2,000 ML IV SCH (22:00)
[2020-12-25] VITALS (15 sets, daily range): BP systolic 134–176; BP diastolic 48–77
[2020-12-25] MEDS: HYDROMORPHONE 1 MG INJ IVP PRN ×2 (01:46→14:34)
[2020-12-25 04:02] LABS: BASOPHILS % (AUTO) 0.2 % (0.0-5.0); HEMATOCRIT 29.7 % (42-54); LYMPHOCYTES % (AUTO) 8.1 % (21.0-51.0); MEAN CORPUSCULAR HEMOGLOBIN 29.3 pg (27.0-33.0); MEAN CORPUSCULAR HGB CONC 32.3 g/dL (32.0-36.0); MEAN CORPUSCULAR VOLUME 90.5 fL (79-99); MONOCYTES % (AUTO) 2.8 % (3.0-13.0); NEUTROPHILS % (AUTO) 84.9 % (40.0-77.0); PLATELET COUNT (AUTO) 259 K/uL (130-400); RED BLOOD CELL COUNT(AUTO) 3.28 MIL/uL (4.50-6.20); RED CELL DISTRIBUTION WIDTH 14.6 % (11.0-15.5); WHITE BLOOD COUNT (AUTO) 9.1 K/uL (4.8-10.8)
[2020-12-25 04:20] LABS: ALBUMIN 1.1 g/dL (3.5-5.0); BILIRUBIN,TOTAL 2.2 mg/dL (0.2-1.0); CREATININE 6.3 mg/dL (0.5-1.5); POTASSIUM 4.8 mmol/L (3.5-5.1); TOTAL PROTEIN, SERUM 4.7 g/dL (6.0-8.3)
[2020-12-25 04:23] LABS: PLATELET MORPHOLOGY PLT CLUMPS PRESENT
[2020-12-25] MEDS: INSULIN HUMULIN R 100 UNIT/ML 3ML SQ SCH ×4 (05:38→17:23)
[2020-12-25] MEDS: IPRATROPIUM/ALBUTEROL SULFATE 3 ML SOLUTION IH SCH ×4 (06:00→18:00)
[2020-12-25] MEDS: MEROPENEM 500 MG VIAL IVP SCH ×2 (06:07→17:23)
[2020-12-25] MEDS: METOCLOPRAMIDE 10 MG/2 ML VIAL IVP SCH ×3 (06:17→21:44)
[2020-12-25] MEDS: LINEZOLID 600 MG/ISO-OSM 300 ML IV SCH ×2 (06:17→20:05)
[2020-12-25] MEDS: HYDROMORPHONE 0.5 MG SYG (0.5MG/0.5ML) IVP SCH (07:30)
[2020-12-25] MEDS: THIAMINE HCL 100 MG/ML 2ML VIAL IVP SCH (09:50)
[2020-12-25] MEDS: FLUCONAZOLE 200 MG/NS 100 ML 100 ML IV SCH (09:50)
[2020-12-25] MEDS: PANTOPRAZOLE 40 MG/VIAL IVP SCH (09:50)
[2020-12-25] MEDS: HEPARIN 5,000 UNIT VIAL SQ SCH ×2 (09:50→20:08)
[2020-12-25] MEDS: METOPROLOL TARTRATE 1 MG/ML 5ML VIAL IV PRN (22:06)
[2020-12-26] VITALS (11 sets, daily range): BP systolic 137–176; BP diastolic 50–82
[2020-12-26] MEDS: INSULIN HUMULIN R 100 UNIT/ML 3ML SQ SCH ×4 (00:06→18:00)
[2020-12-26] MEDS: HYDROMORPHONE 0.5 MG SYG (0.5MG/0.5ML) IVP SCH (01:10)
[2020-12-26] MEDS: IPRATROPIUM/ALBUTEROL SULFATE 3 ML SOLUTION IH SCH ×4 (06:00→18:00)
[2020-12-26] MEDS: MEROPENEM 500 MG VIAL IVP SCH ×2 (06:13→16:58)
[2020-12-26] MEDS: LINEZOLID 600 MG/ISO-OSM 300 ML IV SCH ×2 (06:14→16:58)
[2020-12-26] MEDS: METOCLOPRAMIDE 10 MG/2 ML VIAL IVP SCH ×4 (06:14→21:00)
[2020-12-26] MEDS: METOPROLOL TARTRATE 1 MG/ML 5ML VIAL IV PRN (06:14)
[2020-12-26] MEDS: HEPARIN 5,000 UNIT VIAL SQ SCH ×2 (08:21→20:00)
[2020-12-26] MEDS: PANTOPRAZOLE 40 MG/VIAL IVP SCH (08:21)
[2020-12-26] MEDS: THIAMINE HCL 100 MG/ML 2ML VIAL IVP SCH (08:22)
[2020-12-26] MEDS: FLUCONAZOLE 200 MG/NS 100 ML 100 ML IV SCH (08:22)
[2020-12-26] MEDS ORDERED: M.V.I. IV [ADULT] 10 ML in CLINIMIX-E 5%AA /D15%W 2000ML 2,000 ML IV NR (09:00)
[2020-12-26 19:40] LABS: ABG HCO3 20.8 mmol/L (21.0-28.0); ABG PCO2 28 mmHg (35-48)
[2020-12-26] MEDS ORDERED: CLINIMIX-E 5%AA /D15%W 2000ML 2,000 ML IV SCH (20:30)
[2020-12-27] VITALS (36 sets, daily range): BP systolic 142–175; BP diastolic 48–90
[2020-12-27] MEDS: IPRATROPIUM/ALBUTEROL SULFATE 3 ML SOLUTION IH SCH
[2020-12-27] MEDS: METOPROLOL TARTRATE 1 MG/ML 5ML VIAL IV PRN (00:32)
[2020-12-27 05:14] LABS: HEMATOCRIT 33.1 % (42-54); MEAN CORPUSCULAR HEMOGLOBIN 28.9 pg (27.0-33.0); MEAN CORPUSCULAR HGB CONC 32.6 g/dL (32.0-36.0); MEAN CORPUSCULAR VOLUME 88.5 fL (79-99); RED BLOOD CELL COUNT(AUTO) 3.74 MIL/uL (4.50-6.20); RED CELL DISTRIBUTION WIDTH 14.6 % (11.0-15.5); WHITE BLOOD COUNT (AUTO) 9.7 K/uL (4.8-10.8)
[2020-12-27 05:38] LABS: ALBUMIN 1.4 g/dL (3.5-5.0); BILIRUBIN,TOTAL 2.9 mg/dL (0.2-1.0); CREATININE 6.5 mg/dL (0.5-1.5); POTASSIUM 5.5 mmol/L (3.5-5.1); TOTAL PROTEIN, SERUM 5.5 g/dL (6.0-8.3)
[2020-12-27] MEDS: INSULIN HUMULIN R 100 UNIT/ML 3ML SQ SCH ×4 (06:00→18:00)
[2020-12-27] MEDS: LINEZOLID 600 MG/ISO-OSM 300 ML IV SCH ×2 (06:10→18:44)
[2020-12-27] MEDS: MEROPENEM 500 MG VIAL IVP SCH ×2 (06:10→18:44)
[2020-12-27] MEDS: METOCLOPRAMIDE 10 MG/2 ML VIAL IVP SCH ×3 (06:10→18:44)
[2020-12-27 06:44] LABS: PROTHROMBIN TIME 10.9 SEC (9.6-11.6)
[2020-12-27 06:45] LABS: PARTIAL THROMBOPLASTIN TIME 30.8 SEC (26.3-35.5)
[2020-12-27] MEDS: HEPARIN 5,000 UNIT VIAL SQ SCH ×2 (08:00→20:00)
[2020-12-27] MEDS: PANTOPRAZOLE 40 MG/VIAL IVP SCH (08:11)
[2020-12-27] MEDS: THIAMINE HCL 100 MG/ML 2ML VIAL IVP SCH (08:11)
[2020-12-27] MEDS: FLUCONAZOLE 200 MG/NS 100 ML 100 ML IV SCH (08:11)
[2020-12-27] MEDS ORDERED: HEPARIN 5,000 UNIT VIAL IV SCH (17:30)
[2020-12-27 18:21] LABS: HEMATOCRIT 30.6 % (42-54)
[2020-12-27 18:34] LABS: HEMOGLOBIN A1C 6.2 % (4.0-6.0)
[2020-12-27 18:36] LABS: ALBUMIN 1.5 g/dL (3.5-5.0); CREATININE 0.7 mg/dL (0.5-1.5)
[2020-12-27 18:56] LABS: % IRON SATURATION 33.1 % (30-44)
[2020-12-27] MEDS ORDERED: CLINIMIX-E 5%AA /D15%W 2000ML 2,000 ML IV SCH (20:30)
[2020-12-28] VITALS (24 sets, daily range): BP systolic 143–180; BP diastolic 47–68
[2020-12-28] MEDS: METOPROLOL TARTRATE 1 MG/ML 5ML VIAL IV PRN (02:24)
[2020-12-28] MEDS: METOCLOPRAMIDE 10 MG/2 ML VIAL IVP SCH ×5 (02:25→20:10)
[2020-12-28 05:02] LABS: CREATININE 4.3 mg/dL (0.5-1.5); HEMATOCRIT 28.8 % (42-54); MEAN CORPUSCULAR HEMOGLOBIN 30.3 pg (27.0-33.0); MEAN CORPUSCULAR HGB CONC 33.7 g/dL (32.0-36.0); POTASSIUM 4.5 mmol/L (3.5-5.1); RED BLOOD CELL COUNT(AUTO) 3.2 MIL/uL (4.50-6.20); RED CELL DISTRIBUTION WIDTH 14.5 % (11.0-15.5); WHITE BLOOD COUNT (AUTO) 8.7 K/uL (4.8-10.8)
[2020-12-28] MEDS: INSULIN HUMULIN R 100 UNIT/ML 3ML SQ SCH ×4 (06:00→17:35)
[2020-12-28] MEDS: MEROPENEM 500 MG VIAL IVP SCH ×2 (07:19→17:39)
[2020-12-28] MEDS: LINEZOLID 600 MG/ISO-OSM 300 ML IV SCH ×2 (07:19→18:58)
[2020-12-28] MEDS: HEPARIN 5,000 UNIT VIAL SQ SCH ×2 (08:47→20:10)
[2020-12-28] MEDS: FLUCONAZOLE 200 MG/NS 100 ML 100 ML IV SCH (08:47)
[2020-12-28] MEDS: PANTOPRAZOLE 40 MG/VIAL IVP SCH (08:48)
[2020-12-28] MEDS: THIAMINE HCL 100 MG/ML 2ML VIAL IVP SCH (08:48)
[2020-12-28] MEDS ORDERED: MORPHINE 2 MG SYG ONE (16:54)
[2020-12-28] MEDS: IPRATROPIUM/ALBUTEROL SULFATE 3 ML SOLUTION IH SCH (19:11)
[2020-12-28] MEDS: MORPHINE 2 MG SYG IVP PRN (20:11)
[2020-12-29] VITALS (34 sets, daily range): BP systolic 120–177; BP diastolic 46–74
[2020-12-29] MEDS ORDERED: IPRATROPIUM/ALBUTEROL SULFATE 3 ML SOLUTION IH SCH
[2020-12-29] MEDS: IPRATROPIUM/ALBUTEROL SULFATE 3 ML SOLUTION IH SCH ×4 (00:13→18:48)
[2020-12-29] MEDS: MORPHINE 2 MG SYG IVP PRN ×2 (01:58→14:26)
[2020-12-29 03:29] LABS: HEMATOCRIT 26.4 % (42-54); MEAN CORPUSCULAR HEMOGLOBIN 30.5 pg (27.0-33.0); MEAN CORPUSCULAR HGB CONC 33.7 g/dL (32.0-36.0); MEAN CORPUSCULAR VOLUME 90.4 fL (79-99); RED BLOOD CELL COUNT(AUTO) 2.92 MIL/uL (4.50-6.20); RED CELL DISTRIBUTION WIDTH 14.6 % (11.0-15.5)
[2020-12-29 05:22] LABS: ALBUMIN 1.4 g/dL (3.5-5.0); BILIRUBIN,TOTAL 1.3 mg/dL (0.2-1.0); CREATININE 4.6 mg/dL (0.5-1.5); POTASSIUM 4.8 mmol/L (3.5-5.1); TOTAL PROTEIN, SERUM 5.1 g/dL (6.0-8.3)
[2020-12-29] MEDS: LINEZOLID 600 MG/ISO-OSM 300 ML IV SCH ×4 (05:48→21:00)
[2020-12-29] MEDS: INSULIN HUMULIN R 100 UNIT/ML 3ML SQ SCH ×4 (05:48→18:00)
[2020-12-29] MEDS: MEROPENEM 500 MG VIAL IVP SCH ×3 (05:48→20:39)
[2020-12-29] MEDS ORDERED: TAMSULOSIN HCL 0.4 MG CAP.ER.24H PO SCH (06:00)
[2020-12-29] MEDS: METOCLOPRAMIDE 10 MG/2 ML VIAL IVP SCH ×4 (07:30→20:39)
[2020-12-29] MEDS: FLUCONAZOLE 200 MG/NS 100 ML 100 ML IV SCH (12:52)
[2020-12-29] MEDS: PANTOPRAZOLE 40 MG/VIAL IVP SCH (12:53)
[2020-12-29] MEDS ORDERED: CLINIMIX-E 5%AA /D15%W 2000ML 2,000 ML IV NR ×2 (12:54→13:30)
[2020-12-29] MEDS: THIAMINE HCL 100 MG/ML 2ML VIAL IVP SCH (12:55)
[2020-12-29] MEDS: HEPARIN 5,000 UNIT VIAL SQ SCH ×2 (12:56→20:47)
[2020-12-30] VITALS (28 sets, daily range): BP systolic 127–165; BP diastolic 48–69
[2020-12-30] MEDS: LINEZOLID 600 MG/ISO-OSM 300 ML IV SCH ×3 (00:05→20:50)
[2020-12-30] MEDS: IPRATROPIUM/ALBUTEROL SULFATE 3 ML SOLUTION IH SCH ×4 (00:39→18:52)
[2020-12-30] MEDS: MORPHINE 2 MG SYG IVP PRN ×2 (03:43→06:10)
[2020-12-30 03:48] LABS: BASOPHILS % (AUTO) 0.4 % (0.0-5.0); EOSINOPHILS % (AUTO) 2.4 % (0.0-8.0); LYMPHOCYTES % (AUTO) 14.1 % (21.0-51.0); MEAN CORPUSCULAR HEMOGLOBIN 30.2 pg (27.0-33.0); MEAN CORPUSCULAR HGB CONC 33.2 g/dL (32.0-36.0); MEAN CORPUSCULAR VOLUME 90.9 fL (79-99); MONOCYTES % (AUTO) 7.8 % (3.0-13.0); NEUTROPHILS % (AUTO) 74.4 % (40.0-77.0); PLATELET COUNT (AUTO) 306 K/uL (130-400); RED BLOOD CELL COUNT(AUTO) 3.08 MIL/uL (4.50-6.20); RED CELL DISTRIBUTION WIDTH 14.4 % (11.0-15.5); WHITE BLOOD COUNT (AUTO) 8.1 K/uL (4.8-10.8)
[2020-12-30 04:02] LABS: CREATININE 3.4 mg/dL (0.5-1.5); POTASSIUM 4.6 mmol/L (3.5-5.1)
[2020-12-30 04:10] LABS: HEPATITIS Bs ANTIGEN SCREEN P Negative (Negative)
[2020-12-30] MEDS: INSULIN HUMULIN R 100 UNIT/ML 3ML SQ SCH ×4 (06:00→18:00)
[2020-12-30 06:42] LABS: ABG BASE EXCESS -0.1 mmol/L (-2.0-3.0); ABG HCO3 21.8 mmol/L (21.0-28.0); ABG OXYGEN SATURATION 97.1 % (95.0-99.0); ABG PCO2 29 mmHg (35-48)
[2020-12-30] MEDS: HEPARIN 5,000 UNIT VIAL SQ SCH ×2 (08:29→20:52)
[2020-12-30] MEDS: THIAMINE HCL 100 MG/ML 2ML VIAL IVP SCH (09:00)
[2020-12-30] MEDS: FLUCONAZOLE 200 MG/NS 100 ML 100 ML IV SCH (09:00)
[2020-12-30] MEDS ORDERED: TAMSULOSIN HCL 0.4 MG CAP.ER.24H PO SCH (09:00)
[2020-12-30] MEDS: MEROPENEM 500 MG VIAL IVP SCH ×2 (09:00→20:49)
[2020-12-30] MEDS: PANTOPRAZOLE 40 MG/VIAL IVP SCH (09:00)
[2020-12-30] MEDS ORDERED: DIATR MEGLU/DIATRIZOATE SODIUM 30 ML BOTTLE ONE (09:29)
[2020-12-30] MEDS: METOCLOPRAMIDE 10 MG/2 ML VIAL IVP SCH ×3 (11:40→18:43)
[2020-12-30] MEDS ORDERED: CLINIMIX-E 5%AA /D15%W 2000ML 2,000 ML IV SCH (19:00)
[2020-12-31] VITALS (34 sets, daily range): BP systolic 121–167; BP diastolic 45–82
[2020-12-31] MEDS: IPRATROPIUM/ALBUTEROL SULFATE 3 ML SOLUTION IH SCH ×4 (00:40→18:33)
[2020-12-31 04:15] LABS: BASOPHILS % (AUTO) 0.5 % (0.0-5.0); EOSINOPHILS % (AUTO) 3.4 % (0.0-8.0); HEMATOCRIT 27.5 % (42-54); LYMPHOCYTES % (AUTO) 19.3 % (21.0-51.0); MEAN CORPUSCULAR HEMOGLOBIN 29.8 pg (27.0-33.0); MEAN CORPUSCULAR HGB CONC 33.1 g/dL (32.0-36.0); MEAN CORPUSCULAR VOLUME 90.2 fL (79-99); MONOCYTES % (AUTO) 11.6 % (3.0-13.0); NEUTROPHILS % (AUTO) 64.8 % (40.0-77.0); PLATELET COUNT (AUTO) 339 K/uL (130-400); RED BLOOD CELL COUNT(AUTO) 3.05 MIL/uL (4.50-6.20)
[2020-12-31 04:38] LABS: ALBUMIN 1.5 g/dL (3.5-5.0); CREATININE 2.6 mg/dL (0.5-1.5); POTASSIUM 4.2 mmol/L (3.5-5.1); TOTAL PROTEIN, SERUM 5.2 g/dL (6.0-8.3)
[2020-12-31] MEDS: INSULIN HUMULIN R 100 UNIT/ML 3ML SQ SCH ×2 (06:00)
[2020-12-31] MEDS: METOCLOPRAMIDE 10 MG/2 ML VIAL IVP SCH ×2 (06:02)
[2020-12-31] MEDS: LINEZOLID 600 MG/ISO-OSM 300 ML IV SCH ×2 (08:12→21:14)
[2020-12-31] MEDS: FLUCONAZOLE 200 MG/NS 100 ML 100 ML IV SCH (08:12)
[2020-12-31] MEDS: MEROPENEM 500 MG VIAL IVP SCH ×2 (08:13→21:14)
[2020-12-31] MEDS: PANTOPRAZOLE 40 MG/VIAL IVP SCH (08:13)
[2020-12-31] MEDS: HEPARIN 5,000 UNIT VIAL SQ SCH ×2 (08:14→21:17)
[2020-12-31] MEDS: THIAMINE HCL 100 MG/ML 2ML VIAL IVP SCH (08:24)
[2020-12-31] MEDS ORDERED: ARTIFICAL TEARS SOL 15 ML OU PRN (19:30)
[2020-12-31] MEDS ORDERED: CLINIMIX-E 5%AA /D15%W 2000ML 2,000 ML IV SCH (19:30)
[2021-01-01] VITALS (10 sets, daily range): BP systolic 130–170; BP diastolic 51–67
[2021-01-01] MEDS: IPRATROPIUM/ALBUTEROL SULFATE 3 ML SOLUTION IH SCH ×2 (00:35→06:43)
[2021-01-01 03:47] LABS: BASOPHILS % (AUTO) 0.6 % (0.0-5.0); EOSINOPHILS % (AUTO) 3.6 % (0.0-8.0); HEMATOCRIT 28.3 % (42-54); LYMPHOCYTES % (AUTO) 21.2 % (21.0-51.0); MEAN CORPUSCULAR HEMOGLOBIN 30.1 pg (27.0-33.0); MEAN CORPUSCULAR HGB CONC 32.9 g/dL (32.0-36.0); MEAN CORPUSCULAR VOLUME 91.6 fL (79-99); MONOCYTES % (AUTO) 10.1 % (3.0-13.0); NEUTROPHILS % (AUTO) 63.9 % (40.0-77.0); PLATELET COUNT (AUTO) 309 K/uL (130-400); RED BLOOD CELL COUNT(AUTO) 3.09 MIL/uL (4.50-6.20); RED CELL DISTRIBUTION WIDTH 13.9 % (11.0-15.5); WHITE BLOOD COUNT (AUTO) 7.7 K/uL (4.8-10.8)
[2021-01-01 04:06] LABS: ALBUMIN 1.6 g/dL (3.5-5.0); CREATININE 2.3 mg/dL (0.5-1.5); POTASSIUM 4.8 mmol/L (3.5-5.1); TOTAL PROTEIN, SERUM 5.4 g/dL (6.0-8.3)
[2021-01-01] MEDS: INSULIN HUMULIN R 100 UNIT/ML 3ML SQ SCH ×2 (06:00)
[2021-01-01] MEDS: METOCLOPRAMIDE 10 MG/2 ML VIAL IVP SCH ×2 (06:24)
[2021-01-01] MEDS: LINEZOLID 600 MG/ISO-OSM 300 ML IV SCH (09:22)
[2021-01-01] MEDS: PANTOPRAZOLE 40 MG/VIAL IVP SCH (09:22)
[2021-01-01] MEDS: FLUCONAZOLE 200 MG/NS 100 ML 100 ML IV SCH (09:22)
[2021-01-01] MEDS: MEROPENEM 500 MG VIAL IVP SCH (09:22)
[2021-01-01] MEDS: HEPARIN 5,000 UNIT VIAL SQ SCH (09:23)
[2021-01-01] MEDS: THIAMINE HCL 100 MG/ML 2ML VIAL IVP SCH (09:23)
== END 2021-01-01 11:37 | DRG 329 ==
LOC: EDH 22:27 → OBSVTOIN 12-11 03:15 → EDHIP 12-11 03:15 → 3DH 12-11 22:08 → 2DH 12-16 17:00
PROVIDERS: ADMIT Internal Medicine Critical Care Medicine; ATTEND Internal Medicine Critical Care Medicine
PROC: 0DBN8ZX Excision of Sigmoid Colon, Via Natural or Artificial Opening Endoscopic, Diagnostic (ICD-10-PCS; 2020-12-12)
PROC: 0BH17EZ Insertion of Endotracheal Airway into Trachea, Via Natural or Artificial Opening (ICD-10-PCS; 2020-12-16)
PROC: 02HV33Z Insertion of Infusion Device into Superior Vena Cava, Percutaneous Approach (ICD-10-PCS; 2020-12-17)
PROC: B548ZZA Ultrasonography of Superior Vena Cava, Guidance (ICD-10-PCS; 2020-12-17)
PROC: 0DBN0ZZ Excision of Sigmoid Colon, Open Approach (ICD-10-PCS; principal; 2020-12-18 19:06)
PROC: 0D1N0Z4 Bypass Sigmoid Colon to Cutaneous, Open Approach (ICD-10-PCS; 2020-12-18 19:06)
PROC: 0DTJ0ZZ Resection of Appendix, Open Approach (ICD-10-PCS; 2020-12-18 19:06)
PROC: 30233N1 Transfusion of Nonautologous Red Blood Cells into Peripheral Vein, Percutaneous Approach (ICD-10-PCS; 2020-12-18 19:06)
PROC: 5A1955Z Respiratory Ventilation, Greater than 96 Consecutive Hours (ICD-10-PCS; 2020-12-19)
PROC: 5A1D70Z Performance of Urinary Filtration, Intermittent, Less than 6 Hours Per Day (ICD-10-PCS; 2020-12-27)
PROC: 05HM33Z Insertion of Infusion Device into Right Internal Jugular Vein, Percutaneous Approach (ICD-10-PCS; 2020-12-27)
PROC: 5A1D70Z Performance of Urinary Filtration, Intermittent, Less than 6 Hours Per Day (ICD-10-PCS; 2020-12-29)
PROC: 5A1D70Z Performance of Urinary Filtration, Intermittent, Less than 6 Hours Per Day (ICD-10-PCS; 2020-12-30)
PROC: 5A1D70Z Performance of Urinary Filtration, Intermittent, Less than 6 Hours Per Day (ICD-10-PCS; 2020-12-31)
DX: C18.7 Malignant neoplasm of sigmoid colon (principal); E43 Unspecified severe protein-calorie malnutrition; G92.8 Other toxic encephalopathy; N17.0 Acute kidney failure with tubular necrosis; N18.6 End stage renal disease; A41.9 Sepsis, unspecified organism; R65.21 Severe sepsis with septic shock; J15.0 Pneumonia due to Klebsiella pneumoniae; J96.01 Acute respiratory failure with hypoxia; K56.609 Unspecified intestinal obstruction, unspecified as to partial versus complete obstruction; K59.39 Other megacolon; E87.0 Hyperosmolality and hypernatremia; E87.1 Hypo-osmolality and hyponatremia; E87.2 Acidosis; F10.239 Alcohol dependence with withdrawal, unspecified; G72.81 Critical illness myopathy; I12.0 Hypertensive chronic kidney disease with stage 5 chronic kidney disease or end stage renal disease; J44.0 Chronic obstructive pulmonary disease with (acute) lower respiratory infection; T81.30XA Disruption of wound, unspecified, initial encounter; K56.699 Other intestinal obstruction unspecified as to partial versus complete obstruction; D64.9 Anemia, unspecified; E86.9 Volume depletion, unspecified; E87.6 Hypokalemia; Z93.3 Colostomy status; Z20.822 Contact with and (suspected) exposure to COVID-19; I25.10 Atherosclerotic heart disease of native coronary artery without angina pectoris; G89.29 Other chronic pain; D70.9 Neutropenia, unspecified; F17.200 Nicotine dependence, unspecified, uncomplicated; G40.909 Epilepsy, unspecified, not intractable, without status epilepticus; H70.90 Unspecified mastoiditis, unspecified ear; J30.2 Other seasonal allergic rhinitis; M54.30 Sciatica, unspecified side; N50.89 Other specified disorders of the male genital organs; K57.30 Diverticulosis of large intestine without perforation or abscess without bleeding; G72.9 Myopathy, unspecified; R93.3 Abnormal findings on diagnostic imaging of other parts of digestive tract; R13.10 Dysphagia, unspecified; R62.7 Adult failure to thrive; Z68.27 Body mass index [BMI] 27.0-27.9, adult; Z79.82 Long term (current) use of aspirin; Z74.01 Bed confinement status; Z99.2 Dependence on renal dialysis; Z90.49 Acquired absence of other specified parts of digestive tract; Z85.038 Personal history of other malignant neoplasm of large intestine; Z86.73 Personal history of transient ischemic attack (TIA), and cerebral infarction without residual deficits; Y92.89 Other specified places as the place of occurrence of the external cause; Z80.3 Family history of malignant neoplasm of breast; Z82.49 Family history of ischemic heart disease and other diseases of the circulatory system
CPT/HCPCS: 36415; 36600; 45331; 70450; 70491; 70551; 71045; 74018; 74176; 76770; 80048; 80053; 80061; 81001; 82040; 82140; 82378; 82435; 82565; 82728; 82803; 82947; 82948; 83036; 83540; 83550; 83605; 83690; 83735; 83880; 84100; 84132; 84145; 84295; 84484; 84520; 85014; 85018; 85025; 85027; 85610; 85730; 86316; 86701; 86704; 86706; 86850; 86900; 86901; 86923; 87040; 87071; 87077; 87186; 87205; 87340; 87390; 87635; 88304; 88305; 88307; 88309; 88360; 90935; 92610; 93005; 94002; 94003; 94640; 94667; 94668; 97039; A4344; A4606; A5063; C1781; C1894; C9113; G0378; J0330; J0610; J0690; J1170; J1450; J1580; J1644; J1650; J1815; J1940; J2001; J2020; J2185; J2250; J2370; J2405; J2543; J2704; J2765; J2997; J3010; J3411; J3475; J3480; J3490; J7030; J7040; J7042; J7070; J7120; P9016; P9045; Q9963; Q9967

== ENCOUNTER 2021-05-31 16:30 | Inpatient (IN) | payer MEDICARE ==
[~2021-05-31] VITALS: Ht 177.8 cm; Wt 62.6 kg
[2021-05-31] MEDS ORDERED: MORPHINE 2 MG SYG IVP ONE (17:30)
[2021-05-31] MEDS ORDERED: ONDANSETRON 4MG INJ IVP ONE (17:30)
[2021-05-31 18:01] LABS: BASOPHILS % (AUTO) 0.9 % (0.0-5.0); EOSINOPHILS % (AUTO) 1.4 % (0.0-8.0); HEMATOCRIT 27.9 % (42-54); LYMPHOCYTES % (AUTO) 30.5 % (21.0-51.0); MEAN CORPUSCULAR HEMOGLOBIN 29.2 pg (27.0-33.0); MEAN CORPUSCULAR VOLUME 88.6 fL (79-99); MONOCYTES % (AUTO) 9.5 % (3.0-13.0); NEUTROPHILS % (AUTO) 57.7 % (40.0-77.0); PLATELET COUNT (AUTO) 309 K/uL (130-400); RED BLOOD CELL COUNT(AUTO) 3.15 MIL/uL (4.50-6.20); RED CELL DISTRIBUTION WIDTH 12.9 % (11.0-15.5); WHITE BLOOD COUNT (AUTO) 5.7 K/uL (4.8-10.8)
[2021-05-31 18:16] LABS: INR 1.01 (0.85-1.15)
[2021-05-31 18:17] LABS: CREATININE 3.2 mg/dL (0.5-1.5); PARTIAL THROMBOPLASTIN TIME 28.7 SEC (26.3-35.5); POTASSIUM 4.3 mmol/L (3.5-5.1)
[2021-05-31 18:26] LABS: ALBUMIN 3.4 g/dL (3.5-5.0); BILIRUBIN,TOTAL 0.6 mg/dL (0.2-1.0); TOTAL PROTEIN, SERUM 7.2 g/dL (6.0-8.3)
[2021-05-31] MEDS ORDERED: ONDANSETRON 4MG INJ ONE (18:56)
[2021-05-31] MEDS ORDERED: MORPHINE 4 MG SYG ONE (18:56)
[2021-05-31] MEDS ORDERED: 0.9%NACL 1000ML 1,000 ML IV SCH (19:00)
[2021-05-31 19:33] LABS: APPEARANCE,URINE CLEAR (CLEAR); BILIRUBIN,URINE NEGATIVE (NEGATIVE); COLOR,URINE YELLOW (YELLOW); GLUCOSE, URINE (UA) NEGATIVE (NEGATIVE); KETONES,URINE NEGATIVE (NEGATIVE); LEUKOCYTE ESTERASE ,URINE NEGATIVE (NEGATIVE); NITRATE,URINE NEGATIVE (NEGATIVE); OCCULT BLOOD,URINE NEGATIVE (NEGATIVE); PROTEIN,URINE NEGATIVE (NEGATIVE); UROBILINOGEN,URINE 0.2 mg/dL (0.2-1.0)
[2021-05-31] MEDS ORDERED: ACETAMINOPHEN 325 MG TAB PO PRN (20:00)
[2021-05-31] MEDS ORDERED: DEXTROSE 50%-WATER 50 ML DISP.SYRIN IV PRN (20:00)
[2021-05-31] MEDS ORDERED: DEXTROSE 5 % AND 0.9 % NACL 1,000 ML IV SCH (20:00)
[2021-05-31] MEDS: HEPARIN 5,000 UNIT VIAL SQ SCH (20:16)
[2021-05-31 23:45] VITALS: BP 115/53
[2021-06-01] MEDS ORDERED: DEXTROSE 5 %-0.45 % NACL 1,000 ML IV SCH (00:30)
[2021-06-01] MEDS: DEXTROSE 5 % AND 0.9 % NACL 1,000 ML IV SCH ×3 (01:16→22:46)
[2021-06-01 03:43] VITALS: BP 142/61
[2021-06-01] MEDS: INSULIN R NPO SSI SQ SCH ×3 (06:00→18:00)
[2021-06-01 06:26] LABS: BASOPHILS % (AUTO) 0.9 % (0.0-5.0); EOSINOPHILS % (AUTO) 1.8 % (0.0-8.0); HEMATOCRIT 26.7 % (42-54); LYMPHOCYTES % (AUTO) 35.8 % (21.0-51.0); MEAN CORPUSCULAR HEMOGLOBIN 29.6 pg (27.0-33.0); MEAN CORPUSCULAR VOLUME 89.9 fL (79-99); MONOCYTES % (AUTO) 9.9 % (3.0-13.0); NEUTROPHILS % (AUTO) 51.2 % (40.0-77.0); PLATELET COUNT (AUTO) 262 K/uL (130-400); RED BLOOD CELL COUNT(AUTO) 2.97 MIL/uL (4.50-6.20); RED CELL DISTRIBUTION WIDTH 12.7 % (11.0-15.5); WHITE BLOOD COUNT (AUTO) 5.7 K/uL (4.8-10.8)
[2021-06-01 06:33] LABS: MAGNESIUM 1.9 mg/dL (1.80-2.40); POTASSIUM 4.3 mmol/L (3.5-5.1)
[2021-06-01 07:30] VITALS: BP 137/63
[2021-06-01] MEDS: HEPARIN 5,000 UNIT VIAL SQ SCH ×2 (09:00→20:20)
[2021-06-01 11:00] VITALS: BP 132/54
[2021-06-01] MEDS ORDERED: MAGNESIUM CITRATE 296 ML SOLUTION PO SCH (12:30)
[2021-06-01 15:30] VITALS: BP 144/57
[2021-06-01] MEDS ORDERED: MAGNESIUM CITRATE 296 ML SOLUTION PO ONE (20:00)
[2021-06-01 20:20] VITALS: BP 142/66
[2021-06-01 23:57] VITALS: BP 126/59
[2021-06-02 03:49] VITALS: BP 132/64
[2021-06-02 04:52] LABS: HEMATOCRIT 26.4 % (42-54); RED CELL DISTRIBUTION WIDTH 12.7 % (11.0-15.5); WHITE BLOOD COUNT (AUTO) 6.7 K/uL (4.8-10.8)
[2021-06-02 05:02] LABS: CREATININE 2.9 mg/dL (0.5-1.5); MAGNESIUM 2.5 mg/dL (1.80-2.40); POTASSIUM 3.7 mmol/L (3.5-5.1)
[2021-06-02] MEDS: INSULIN R NPO SSI SQ SCH ×3 (06:00→12:00)
[2021-06-02 07:30] VITALS: BP 135/58
[2021-06-02] MEDS: DEXTROSE 5 % AND 0.9 % NACL 1,000 ML IV SCH ×2 (09:16→20:43)
[2021-06-02] MEDS: HEPARIN 5,000 UNIT VIAL SQ SCH ×2 (09:25→20:23)
[2021-06-02] MEDS ORDERED: LACTULOSE 20 GM/30 ML UDCUP PR SCH (10:00)
[2021-06-02] MEDS ORDERED: BENZOCAINE/MENTH/CETYLPYRD CL 1 EACH LOZENGE MM PRN (10:00)
[2021-06-02 11:00] VITALS: BP 130/58
[2021-06-02 16:00] VITALS: BP 123/46
[2021-06-02 20:14] VITALS: BP 131/54
[2021-06-02 23:46] VITALS: BP 123/57
[2021-06-03 03:59] VITALS: BP 118/54
[2021-06-03] MEDS: INSULIN R NPO SSI SQ SCH ×5 (06:00→22:49)
[2021-06-03 08:00] VITALS: BP 113/46
[2021-06-03 08:05] LABS: CREATININE 2.8 mg/dL (0.5-1.5); POTASSIUM 4.1 mmol/L (3.5-5.1)
[2021-06-03] MEDS: HEPARIN 5,000 UNIT VIAL SQ SCH ×2 (10:57→22:54)
[2021-06-03 12:00] VITALS: BP 115/46
[2021-06-03] MEDS: DEXTROSE 5 % AND 0.9 % NACL 1,000 ML IV SCH ×2 (15:15→23:28)
[2021-06-03 16:00] VITALS: BP 123/51
[2021-06-03 20:00] VITALS: BP 130/48
[2021-06-04] VITALS: BP 139/59
[2021-06-04 04:00] VITALS: BP 140/51
[2021-06-04 04:50] LABS: BASOPHILS % (AUTO) 0.2 % (0.0-5.0); EOSINOPHILS % (AUTO) 3.2 % (0.0-8.0); LYMPHOCYTES % (AUTO) 30.5 % (21.0-51.0); MEAN CORPUSCULAR HEMOGLOBIN 29.2 pg (27.0-33.0); MEAN CORPUSCULAR HGB CONC 31.6 g/dL (32.0-36.0); MEAN CORPUSCULAR VOLUME 92.3 fL (79-99); MONOCYTES % (AUTO) 8.7 % (3.0-13.0); PLATELET COUNT (AUTO) 222 K/uL (130-400); RED BLOOD CELL COUNT(AUTO) 2.71 MIL/uL (4.50-6.20); WHITE BLOOD COUNT (AUTO) 5.3 K/uL (4.8-10.8)
[2021-06-04 05:01] LABS: CREATININE 2.5 mg/dL (0.5-1.5); MAGNESIUM 2.1 mg/dL (1.80-2.40); POTASSIUM 3.9 mmol/L (3.5-5.1)
[2021-06-04 05:14] LABS: % IRON SATURATION 16.8 % (30-44)
[2021-06-04] MEDS: INSULIN R NPO SSI SQ SCH ×2 (06:00→12:00)
[2021-06-04 08:00] VITALS: BP 118/55
[2021-06-04] MEDS: DEXTROSE 5 % AND 0.9 % NACL 1,000 ML IV SCH ×2 (09:48→20:18)
[2021-06-04] MEDS: HEPARIN 5,000 UNIT VIAL SQ SCH ×2 (09:49→20:25)
[2021-06-04 12:00] VITALS: BP 131/59
[2021-06-04] MEDS: LACTULOSE 20 GM/30 ML UDCUP PO SCH ×2 (12:47→20:18)
[2021-06-04 16:00] VITALS: BP 121/40
[2021-06-04 20:00] VITALS: BP 132/46
[2021-06-05] VITALS (7 sets, daily range): BP systolic 119–150; BP diastolic 42–88
[2021-06-05] MEDS: MORPHINE 2 MG SYG IVP PRN ×2 (01:36→07:03)
[2021-06-05] MEDS: INSULIN R NPO SSI SQ SCH ×3 (06:00→12:00)
[2021-06-05] MEDS: LACTULOSE 20 GM/30 ML UDCUP PO SCH ×3 (08:19→21:00)
[2021-06-05] MEDS: HEPARIN 5,000 UNIT VIAL SQ SCH ×2 (08:24→20:59)
[2021-06-05] MEDS: DEXTROSE 5 % AND 0.9 % NACL 1,000 ML IV SCH ×3 (10:08→21:01)
[2021-06-05] MEDS: ONDANSETRON 4MG INJ IVP PRN ×2 (10:25→20:59)
[2021-06-05] MEDS ORDERED: MAGNESIUM CITRATE 296 ML SOLUTION PO SCH (16:00)
[2021-06-06 03:27] VITALS: BP 133/62
[2021-06-06 05:23] LABS: CREATININE 2.6 mg/dL (0.5-1.5)
[2021-06-06] MEDS: INSULIN R NPO SSI SQ SCH ×4 (06:00→16:51)
[2021-06-06 07:30] VITALS: BP 124/51
[2021-06-06] MEDS: DEXTROSE 5 % AND 0.9 % NACL 1,000 ML IV SCH ×2 (08:57→21:05)
[2021-06-06] MEDS: LACTULOSE 20 GM/30 ML UDCUP PO SCH ×2 (09:00→19:39)
[2021-06-06] MEDS: HEPARIN 5,000 UNIT VIAL SQ SCH ×2 (09:00→21:02)
[2021-06-06] MEDS: ONDANSETRON 4MG INJ IVP PRN (09:09)
[2021-06-06 11:00] VITALS: BP 131/53
[2021-06-06] MEDS: ZOSYN 3.375GM +NS 50ML IV SCH (14:42)
[2021-06-06 16:00] VITALS: BP 134/56
[2021-06-06 19:30] VITALS: BP 139/57
[2021-06-07] VITALS: BP 143/44
[2021-06-07] MEDS: ZOSYN 3.375GM +NS 50ML IV SCH ×2 (00:49→14:00)
[2021-06-07 04:00] VITALS: BP 134/60
[2021-06-07 04:53] LABS: HEMATOCRIT 24.3 % (42-54); MEAN CORPUSCULAR HEMOGLOBIN 30.1 pg (27.0-33.0); MEAN CORPUSCULAR HGB CONC 32.9 g/dL (32.0-36.0); MEAN CORPUSCULAR VOLUME 91.4 fL (79-99); RED BLOOD CELL COUNT(AUTO) 2.66 MIL/uL (4.50-6.20); RED CELL DISTRIBUTION WIDTH 13.1 % (11.0-15.5); WHITE BLOOD COUNT (AUTO) 3.9 K/uL (4.8-10.8)
[2021-06-07 05:07] LABS: ALBUMIN 2.1 g/dL (3.5-5.0); BILIRUBIN,TOTAL 0.5 mg/dL (0.2-1.0); CREATININE 2.7 mg/dL (0.5-1.5); MAGNESIUM 1.8 mg/dL (1.80-2.40); POTASSIUM 3.5 mmol/L (3.5-5.1); TOTAL PROTEIN, SERUM 5.7 g/dL (6.0-8.3)
[2021-06-07] MEDS: INSULIN R NPO SSI SQ SCH ×4 (06:00→17:03)
[2021-06-07 08:00] VITALS: BP 132/59
[2021-06-07] MEDS: DEXTROSE 5 % AND 0.9 % NACL 1,000 ML IV SCH ×2 (08:28→16:30)
[2021-06-07] MEDS: HEPARIN 5,000 UNIT VIAL SQ SCH ×2 (09:00→20:35)
[2021-06-07] MEDS: LACTULOSE 20 GM/30 ML UDCUP PO SCH ×2 (09:00→19:48)
[2021-06-07] MEDS ORDERED: DIATR MEGLU/DIATRIZOATE SODIUM 30 ML BOTTLE ONE (11:31)
[2021-06-07 11:38] VITALS: BP 136/59
[2021-06-07 16:00] VITALS: BP 147/67
[2021-06-07 19:30] VITALS: BP 151/53
[2021-06-08 00:18] VITALS: BP 146/60
[2021-06-08] MEDS: ZOSYN 3.375GM +NS 50ML IV SCH ×2 (02:33→14:40)
[2021-06-08 04:50] VITALS: BP 137/60
[2021-06-08] MEDS: INSULIN R NPO SSI SQ SCH ×4 (06:00→18:00)
[2021-06-08 08:00] VITALS: BP 151/59
[2021-06-08] MEDS: LACTULOSE 20 GM/30 ML UDCUP PO SCH ×2 (08:49→21:02)
[2021-06-08] MEDS: HEPARIN 5,000 UNIT VIAL SQ SCH ×2 (08:49→21:05)
[2021-06-08] MEDS: DEXTROSE 5 % AND 0.9 % NACL 1,000 ML IV SCH ×2 (08:59→12:04)
[2021-06-08 12:00] VITALS: BP 143/60
[2021-06-08 13:31] LABS: CREATININE 2.9 mg/dL (0.5-1.5); POTASSIUM 3.1 mmol/L (3.5-5.1)
[2021-06-08 16:00] VITALS: BP 156/67
[2021-06-08] MEDS ORDERED: LIDOCAINE HCL-MPF 1% 2ML VIAL IV PRN ×2 (19:30)
[2021-06-08] MEDS ORDERED: KCL 20 MEQ ERTAB PO PRN (19:30)
[2021-06-08] MEDS ORDERED: POTASSIUM CHLORIDE 20MEQ/100ML 100 ML IV PRN ×2 (19:30)
[2021-06-08] MEDS ORDERED: POTASSIUM CHLORIDE 10% ELIXIR 20 MEQ/15 ML UDCUP PO PRN (19:30)
[2021-06-08 20:00] VITALS: BP 155/69
[2021-06-09] VITALS: BP 139/64
[2021-06-09] MEDS: ZOSYN 3.375GM +NS 50ML IV SCH ×2 (01:53→13:40)
[2021-06-09] MEDS: DEXTROSE 5 % AND 0.9 % NACL 1,000 ML IV SCH (01:53)
[2021-06-09] MEDS: POTASSIUM CHLORIDE 20MEQ/10ML 20 MEQ in DEXTROSE 5 %-0.45 % NACL 1,000 ML IV SCH ×2 (02:55→13:40)
[2021-06-09 04:54] VITALS: BP 139/72
[2021-06-09 05:17] LABS: HEMATOCRIT 25.8 % (42-54); MEAN CORPUSCULAR HEMOGLOBIN 30.2 pg (27.0-33.0); MEAN CORPUSCULAR HGB CONC 32.6 g/dL (32.0-36.0); MEAN CORPUSCULAR VOLUME 92.8 fL (79-99); RED BLOOD CELL COUNT(AUTO) 2.78 MIL/uL (4.50-6.20); RED CELL DISTRIBUTION WIDTH 12.9 % (11.0-15.5); WHITE BLOOD COUNT (AUTO) 4.8 K/uL (4.8-10.8)
[2021-06-09 05:37] LABS: MAGNESIUM 1.9 mg/dL (1.80-2.40)
[2021-06-09] MEDS: INSULIN R NPO SSI SQ SCH ×4 (05:48→18:00)
[2021-06-09 08:00] VITALS: BP 143/61
[2021-06-09] MEDS: LACTULOSE 20 GM/30 ML UDCUP PO SCH ×2 (09:01→21:42)
[2021-06-09] MEDS: HEPARIN 5,000 UNIT VIAL SQ SCH ×2 (09:05→21:41)
[2021-06-09] MEDS ORDERED: DEXTROSE 5 %-0.45 % NACL 1,000 ML IV SCH (12:30)
[2021-06-09] MEDS: SIMETHICONE 80 MG TAB.CHEW PO SCH ×2 (13:39→21:40)
[2021-06-09] MEDS: KCL 20 MEQ ERTAB PO SCH (13:39)
[2021-06-09 16:00] VITALS: BP 161/61
[2021-06-09 17:50] LABS: BASOPHILS % (AUTO) 0.2 % (0.0-5.0); EOSINOPHILS % (AUTO) 0.7 % (0.0-8.0); HEMATOCRIT 30.9 % (42-54); LYMPHOCYTES % (AUTO) 23.7 % (21.0-51.0); MEAN CORPUSCULAR HEMOGLOBIN 28.8 pg (27.0-33.0); MEAN CORPUSCULAR HGB CONC 30.1 g/dL (32.0-36.0); MEAN CORPUSCULAR VOLUME 95.7 fL (79-99); MONOCYTES % (AUTO) 7.2 % (3.0-13.0); NEUTROPHILS % (AUTO) 67.9 % (40.0-77.0); PLATELET COUNT (AUTO) 371 K/uL (130-400); RED BLOOD CELL COUNT(AUTO) 3.23 MIL/uL (4.50-6.20); RED CELL DISTRIBUTION WIDTH 13.1 % (11.0-15.5); WHITE BLOOD COUNT (AUTO) 8.6 K/uL (4.8-10.8)
[2021-06-09 18:02] LABS: CREATININE 3.1 mg/dL (0.5-1.5); MAGNESIUM 2.2 mg/dL (1.80-2.40); PHOSPHORUS 3.2 mg/dL (2.5-4.9); POTASSIUM 3.3 mmol/L (3.5-5.1)
[2021-06-09 20:00] VITALS: BP 140/62
[2021-06-10] VITALS: BP 142/66
[2021-06-10] MEDS: ZOSYN 3.375GM +NS 50ML IV SCH ×2 (01:35→14:45)
[2021-06-10 04:00] VITALS: BP 152/76
[2021-06-10 05:37] LABS: BASOPHILS % (AUTO) 0.2 % (0.0-5.0); EOSINOPHILS % (AUTO) 0.5 % (0.0-8.0); HEMATOCRIT 29.5 % (42-54); LYMPHOCYTES % (AUTO) 17.9 % (21.0-51.0); MEAN CORPUSCULAR HEMOGLOBIN 29.8 pg (27.0-33.0); MEAN CORPUSCULAR HGB CONC 31.9 g/dL (32.0-36.0); MEAN CORPUSCULAR VOLUME 93.7 fL (79-99); MONOCYTES % (AUTO) 5.3 % (3.0-13.0); NEUTROPHILS % (AUTO) 75.7 % (40.0-77.0); PLATELET COUNT (AUTO) 346 K/uL (130-400); RED BLOOD CELL COUNT(AUTO) 3.15 MIL/uL (4.50-6.20); RED CELL DISTRIBUTION WIDTH 13.2 % (11.0-15.5); WHITE BLOOD COUNT (AUTO) 10.9 K/uL (4.8-10.8)
[2021-06-10] MEDS: INSULIN R NPO SSI SQ SCH ×3 (05:58→12:00)
[2021-06-10 06:11] LABS: ALBUMIN 2.3 g/dL (3.5-5.0); BILIRUBIN,TOTAL 0.8 mg/dL (0.2-1.0); CREATININE 3.2 mg/dL (0.5-1.5); MAGNESIUM 2.1 mg/dL (1.80-2.40); POTASSIUM 3.6 mmol/L (3.5-5.1); TOTAL PROTEIN, SERUM 6.4 g/dL (6.0-8.3)
[2021-06-10] MEDS ORDERED: PHARMACY COMMUNICATION MISC SCH (07:00)
[2021-06-10 08:58] VITALS: BP 141/69
[2021-06-10] MEDS: SIMETHICONE 80 MG TAB.CHEW PO SCH ×3 (09:00→22:56)
[2021-06-10] MEDS: LACTULOSE 20 GM/30 ML UDCUP PO SCH ×2 (09:00→22:55)
[2021-06-10] MEDS: HEPARIN 5,000 UNIT VIAL SQ SCH ×2 (09:05→22:59)
[2021-06-10] MEDS: D5 NS WITH 20 mEq KCl 1000ML 1,000 ML IV SCH ×2 (11:54→16:34)
[2021-06-10] MEDS: KCL 20 MEQ ERTAB PO SCH (12:30)
[2021-06-10 12:56] VITALS: BP 143/68
[2021-06-10 19:08] VITALS: BP 141/66
[2021-06-10 20:00] VITALS: BP 145/69
[2021-06-11] VITALS: BP 155/67
[2021-06-11] MEDS: ZOSYN 3.375GM +NS 50ML IV SCH ×2 (02:33→14:23)
[2021-06-11 04:00] VITALS: BP 149/68
[2021-06-11 05:26] LABS: BASOPHILS % (AUTO) 0.3 % (0.0-5.0); HEMATOCRIT 30.2 % (42-54); LYMPHOCYTES % (AUTO) 18.3 % (21.0-51.0); MEAN CORPUSCULAR HEMOGLOBIN 29.6 pg (27.0-33.0); MEAN CORPUSCULAR HGB CONC 31.1 g/dL (32.0-36.0); MONOCYTES % (AUTO) 4.7 % (3.0-13.0); NEUTROPHILS % (AUTO) 74.1 % (40.0-77.0); PLATELET COUNT (AUTO) 306 K/uL (130-400); RED BLOOD CELL COUNT(AUTO) 3.18 MIL/uL (4.50-6.20); RED CELL DISTRIBUTION WIDTH 13.3 % (11.0-15.5); WHITE BLOOD COUNT (AUTO) 10.7 K/uL (4.8-10.8)
[2021-06-11 05:41] LABS: CREATININE 3.6 mg/dL (0.5-1.5); POTASSIUM 3.3 mmol/L (3.5-5.1)
[2021-06-11] MEDS: INSULIN R NPO SSI SQ SCH ×4 (06:00→18:00)
[2021-06-11] MEDS ORDERED: FUROSEMIDE 20MG VIAL ONE (06:47)
[2021-06-11] MEDS ORDERED: WATER IV SCH (07:00)
[2021-06-11] MEDS ORDERED: FUROSEMIDE 20MG VIAL IV ONE (07:00)
[2021-06-11] MEDS ORDERED: DEXTROSE 5% IV SCH (07:00)
[2021-06-11] MEDS ORDERED: POTASSIUM CHLORIDE IV SCH (07:00)
[2021-06-11 07:30] VITALS: BP 151/75
[2021-06-11] MEDS: LACTULOSE 20 GM/30 ML UDCUP PO SCH (09:22)
[2021-06-11] MEDS: SIMETHICONE 80 MG TAB.CHEW PO SCH ×3 (09:23→21:39)
[2021-06-11] MEDS: HEPARIN 5,000 UNIT VIAL SQ SCH ×2 (09:32→21:40)
[2021-06-11 11:00] VITALS: BP 161/79
[2021-06-11] MEDS ORDERED: DEXTROSE IV ONE ×3 (14:00)
[2021-06-11] MEDS ORDERED: MULTIVITAMIN IV ONE ×3 (14:00)
[2021-06-11] MEDS ORDERED: AMINO ACIDS IV ONE ×3 (14:00)
[2021-06-11] MEDS ORDERED: [UNRECOGNIZED DRUG - NUTRITION] IV ONE ×2 (14:00)
[2021-06-11] MEDS ORDERED: [UNRECOGNIZED DRUG - OTHER] IV ONE ×3 (14:00)
[2021-06-11] MEDS ORDERED: TRACE ELEMENTS IV ONE ×3 (14:00)
[2021-06-11] MEDS ORDERED: ELECTROLYTES IV ONE ×3 (14:00)
[2021-06-11 16:00] VITALS: BP 151/75
[2021-06-11 17:17] LABS: INR 1.01 (0.85-1.15)
[2021-06-11 17:18] LABS: PARTIAL THROMBOPLASTIN TIME 27.1 SEC (26.3-35.5)
[2021-06-11] MEDS: POTASSIUM CHLORIDE 20MEQ/10ML 20 MEQ in DEXTROSE 5%-WATER 1,000 ML IV SCH (18:30)
[2021-06-11 20:00] VITALS: BP 148/72
[2021-06-12 00:38] VITALS: BP 140/81
[2021-06-12] MEDS: POTASSIUM CHLORIDE 20MEQ/10ML 20 MEQ in DEXTROSE 5%-WATER 1,000 ML IV SCH ×3 (01:17→23:55)
[2021-06-12] MEDS: ZOSYN 3.375GM +NS 50ML IV SCH ×2 (02:32→15:01)
[2021-06-12 04:47] VITALS: BP 134/69
[2021-06-12 05:45] LABS: BASOPHILS % (AUTO) 0.2 % (0.0-5.0); EOSINOPHILS % (AUTO) 2.8 % (0.0-8.0); HEMATOCRIT 30.7 % (42-54); LYMPHOCYTES % (AUTO) 17.4 % (21.0-51.0); MEAN CORPUSCULAR HEMOGLOBIN 29.8 pg (27.0-33.0); MEAN CORPUSCULAR HGB CONC 31.3 g/dL (32.0-36.0); MEAN CORPUSCULAR VOLUME 95.3 fL (79-99); MONOCYTES % (AUTO) 3.9 % (3.0-13.0); NEUTROPHILS % (AUTO) 75.1 % (40.0-77.0); PLATELET COUNT (AUTO) 303 K/uL (130-400); RED BLOOD CELL COUNT(AUTO) 3.22 MIL/uL (4.50-6.20); RED CELL DISTRIBUTION WIDTH 13.3 % (11.0-15.5); WHITE BLOOD COUNT (AUTO) 10.9 K/uL (4.8-10.8)
[2021-06-12] MEDS: INSULIN R NPO SSI SQ SCH ×3 (06:00→18:00)
[2021-06-12 06:09] LABS: BILIRUBIN,TOTAL 0.6 mg/dL (0.2-1.0); POTASSIUM 3.3 mmol/L (3.5-5.1); TOTAL PROTEIN, SERUM 6.2 g/dL (6.0-8.3)
[2021-06-12 07:30] VITALS: BP 153/68
[2021-06-12 11:00] VITALS: BP 138/72
[2021-06-12] MEDS: HEPARIN 5,000 UNIT VIAL SQ SCH ×2 (11:22→22:06)
[2021-06-12] MEDS: SIMETHICONE 80 MG TAB.CHEW PO SCH ×3 (11:22→21:50)
[2021-06-12] MEDS: LACTULOSE 20 GM/30 ML UDCUP PO SCH ×2 (11:23→21:00)
[2021-06-12] MEDS: FAT EMULSIONS 20% 250ML 250 ML IV SCH (11:24)
[2021-06-12] MEDS ORDERED: COMPOUND IV MISC 1 EACH IVSOLN MISC PRN (12:30)
[2021-06-12 16:00] VITALS: BP 138/70
[2021-06-12 19:06] LABS: POTASSIUM 3.4 mmol/L (3.5-5.1)
[2021-06-12 20:12] VITALS: BP 150/76
[2021-06-12] MEDS ORDERED: FUROSEMIDE 20MG VIAL IV ONE (21:30)
[2021-06-12] MEDS ORDERED: [UNRECOGNIZED DRUG - NUTRITION] IV ONE ×2 (22:00)
[2021-06-13 00:12] VITALS: BP 126/81
[2021-06-13] MEDS: ZOSYN 3.375GM +NS 50ML IV SCH ×2 (02:18→15:52)
[2021-06-13 04:12] VITALS: BP 144/66
[2021-06-13 05:29] LABS: HEMATOCRIT 28.3 % (42-54); MEAN CORPUSCULAR HEMOGLOBIN 28.7 pg (27.0-33.0); MEAN CORPUSCULAR HGB CONC 30.7 g/dL (32.0-36.0); MEAN CORPUSCULAR VOLUME 93.4 fL (79-99); PLATELET COUNT (AUTO) 270 K/uL (130-400); RED BLOOD CELL COUNT(AUTO) 3.03 MIL/uL (4.50-6.20); RED CELL DISTRIBUTION WIDTH 13.2 % (11.0-15.5); WHITE BLOOD COUNT (AUTO) 10.9 K/uL (4.8-10.8)
[2021-06-13] MEDS: INSULIN R NPO SSI SQ SCH ×4 (05:58→18:00)
[2021-06-13 06:04] LABS: CREATININE 3.9 mg/dL (0.5-1.5); MAGNESIUM 2.4 mg/dL (1.80-2.40); PHOSPHORUS 4.3 mg/dL (2.5-4.9); POTASSIUM 3.5 mmol/L (3.5-5.1)
[2021-06-13 06:37] LABS: BASOPHILS % (MANUAL) 1 % (0-2); EOSINOPHILS % (MANUAL) 4 % (1-6); LYMPHOCYTES % (MANUAL) 23 % (22-44); MAN.DIFF COMMENT-IMPRESSION MANUAL DIFFERENTIAL; MONOCYTES % (MANUAL) 1 % (2-9); SEGMENTED NEUTROPHILS % 71 % (40-70)
[2021-06-13 08:00] VITALS: BP 145/67
[2021-06-13] MEDS: LACTULOSE 20 GM/30 ML UDCUP PO SCH ×2 (09:00→20:46)
[2021-06-13] MEDS: SIMETHICONE 80 MG TAB.CHEW PO SCH ×3 (09:33→20:47)
[2021-06-13] MEDS: HEPARIN 5,000 UNIT VIAL SQ SCH ×2 (09:38→21:23)
[2021-06-13] MEDS: FUROSEMIDE 20MG VIAL IV SCH (09:39)
[2021-06-13] MEDS: POTASSIUM CHLORIDE 20MEQ/10ML 20 MEQ in DEXTROSE 5%-WATER 1,000 ML IV SCH ×2 (10:54→20:58)
[2021-06-13 12:00] VITALS: BP 146/71
[2021-06-13] MEDS: ONDANSETRON 4MG INJ IVP PRN (15:52)
[2021-06-13 16:00] VITALS: BP 138/67
[2021-06-13] MEDS: EPOETIN ALFA-EPBX (NON-ESRD) 10,000 UNIT/ML VIAL SQ SCH (16:39)
[2021-06-13 20:08] VITALS: BP 144/64
[2021-06-14 00:08] VITALS: BP 142/66
[2021-06-14] MEDS: ZOSYN 3.375GM +NS 50ML IV SCH ×2 (02:31→15:09)
[2021-06-14] MEDS: POTASSIUM CHLORIDE 20MEQ/10ML 20 MEQ in DEXTROSE 5%-WATER 1,000 ML IV SCH ×2 (02:31→17:44)
[2021-06-14 04:08] VITALS: BP 133/69
[2021-06-14 05:39] LABS: BASOPHILS % (AUTO) 0.2 % (0.0-5.0); EOSINOPHILS % (AUTO) 3.2 % (0.0-8.0); HEMATOCRIT 26.9 % (42-54); LYMPHOCYTES % (AUTO) 17.1 % (21.0-51.0); MEAN CORPUSCULAR HEMOGLOBIN 28.8 pg (27.0-33.0); MEAN CORPUSCULAR HGB CONC 30.9 g/dL (32.0-36.0); MEAN CORPUSCULAR VOLUME 93.4 fL (79-99); MONOCYTES % (AUTO) 3.7 % (3.0-13.0); NEUTROPHILS % (AUTO) 74.8 % (40.0-77.0); PLATELET COUNT (AUTO) 293 K/uL (130-400); RED BLOOD CELL COUNT(AUTO) 2.88 MIL/uL (4.50-6.20); RED CELL DISTRIBUTION WIDTH 13.2 % (11.0-15.5); WHITE BLOOD COUNT (AUTO) 13.4 K/uL (4.8-10.8)
[2021-06-14] MEDS: INSULIN R NPO SSI SQ SCH ×4 (05:39→17:45)
[2021-06-14 05:57] LABS: CREATININE 4.3 mg/dL (0.5-1.5); POTASSIUM 3.9 mmol/L (3.5-5.1)
[2021-06-14] MEDS: ONDANSETRON 4MG INJ IVP PRN (07:06)
[2021-06-14 08:00] VITALS: BP 139/67
[2021-06-14] MEDS ORDERED: ZINC SULFATE 220 CAPSULE NG SCH (09:00)
[2021-06-14] MEDS: LACTULOSE 20 GM/30 ML UDCUP PO SCH ×2 (09:20→21:26)
[2021-06-14] MEDS: FUROSEMIDE 20MG VIAL IV SCH (09:21)
[2021-06-14] MEDS: HEPARIN 5,000 UNIT VIAL SQ SCH ×2 (09:29→21:27)
[2021-06-14 12:00] VITALS: BP 112/67
[2021-06-14] MEDS: SIMETHICONE 80 MG TAB.CHEW PO SCH ×2 (12:19→17:47)
[2021-06-14 16:00] VITALS: BP 145/65
[2021-06-14] MEDS ORDERED: M.V.I. IV [ADULT] 10 ML in CLINIMIX-E4.25%AA/D5+LYT2000ML 2,000 ML IV SCH (19:00)
[2021-06-14 20:08] VITALS: BP 134/70
[2021-06-14 23:35] LABS: APPEARANCE,URINE Clear (CLEAR); BILIRUBIN,URINE Negative (NEGATIVE); COLOR,URINE Yellow (YELLOW); GLUCOSE, URINE (UA) Negative (NEGATIVE); KETONES,URINE Negative (NEGATIVE); LEUKOCYTE ESTERASE ,URINE Negative (NEGATIVE); NITRATE,URINE Negative (NEGATIVE); OCCULT BLOOD,URINE Negative (NEGATIVE); PROTEIN,URINE POS 1+ mg/dL (NEGATIVE); UROBILINOGEN,URINE 0.2 mg/dL (0.2-1.0)
[2021-06-15 00:08] VITALS: BP 135/66
[2021-06-15 00:09] LABS: RBC,URINE 0-1 /HPF (0-1)
[2021-06-15 00:12] LABS: BACTERIA,URINE None Seen /HPF (None Seen)
[2021-06-15 00:13] LABS: SQUAMOUS EPITHELIAL CELL,UR Few /HPF (0-2)
[2021-06-15] MEDS: ZOSYN 3.375GM +NS 50ML IV SCH ×2 (03:10→15:30)
[2021-06-15 04:12] VITALS: BP 141/66
[2021-06-15] MEDS: POTASSIUM CHLORIDE 20MEQ/10ML 20 MEQ in DEXTROSE 5%-WATER 1,000 ML IV SCH (04:57)
[2021-06-15 05:10] LABS: BASOPHILS % (AUTO) 0.2 % (0.0-5.0); EOSINOPHILS % (AUTO) 2.4 % (0.0-8.0); HEMATOCRIT 25.6 % (42-54); LYMPHOCYTES % (AUTO) 18.4 % (21.0-51.0); MEAN CORPUSCULAR HEMOGLOBIN 29.6 pg (27.0-33.0); MEAN CORPUSCULAR HGB CONC 32.8 g/dL (32.0-36.0); MEAN CORPUSCULAR VOLUME 90.1 fL (79-99); NEUTROPHILS % (AUTO) 73.2 % (40.0-77.0); PLATELET COUNT (AUTO) 263 K/uL (130-400); RED BLOOD CELL COUNT(AUTO) 2.84 MIL/uL (4.50-6.20); RED CELL DISTRIBUTION WIDTH 13.4 % (11.0-15.5); WHITE BLOOD COUNT (AUTO) 12.5 K/uL (4.8-10.8)
[2021-06-15 05:45] LABS: ALBUMIN 1.7 g/dL (3.5-5.0); BILIRUBIN,TOTAL 1.1 mg/dL (0.2-1.0); CREATININE 5.2 mg/dL (0.5-1.5); PHOSPHORUS 6.7 mg/dL (2.5-4.9); POTASSIUM 4.3 mmol/L (3.5-5.1); TOTAL PROTEIN, SERUM 6.3 g/dL (6.0-8.3)
[2021-06-15] MEDS: INSULIN R NPO SSI SQ SCH ×4 (06:00→18:00)
[2021-06-15 07:00] VITALS: BP 133/58
[2021-06-15] MEDS: 0.9%NACL 1000ML 1,000 ML IV SCH ×2 (07:30→20:50)
[2021-06-15] MEDS ORDERED: 0.9%NACL 1000ML 1,000 ML IV ONE (07:32)
[2021-06-15] MEDS: FAT EMULSIONS 20% 250ML 250 ML IV SCH (09:09)
[2021-06-15] MEDS: SIMETHICONE 80 MG TAB.CHEW PO SCH ×3 (09:09→18:36)
[2021-06-15] MEDS: LACTULOSE 20 GM/30 ML UDCUP PO SCH ×2 (09:09→21:43)
[2021-06-15] MEDS: HEPARIN 5,000 UNIT VIAL SQ SCH ×2 (09:10→21:11)
[2021-06-15] MEDS: FUROSEMIDE 20MG VIAL IV SCH (09:13)
[2021-06-15 11:41] VITALS: BP 119/65
[2021-06-15 16:00] VITALS: BP 117/75
[2021-06-15] MEDS ORDERED: M.V.I. IV [ADULT] 10 ML in CLINIMIX-E4.25%AA/D5+LYT2000ML 2,000 ML IV SCH (19:30)
[2021-06-15 20:00] VITALS: BP 131/64
[2021-06-16] VITALS (21 sets, daily range): BP systolic 100–139; BP diastolic 44–73
[2021-06-16] MEDS: ZOSYN 3.375GM +NS 50ML IV SCH ×2 (02:39→12:59)
[2021-06-16 04:58] LABS: BASOPHILS % (AUTO) 0.1 % (0.0-5.0); EOSINOPHILS % (AUTO) 1.4 % (0.0-8.0); HEMATOCRIT 24.1 % (42-54); LYMPHOCYTES % (AUTO) 13.5 % (21.0-51.0); MEAN CORPUSCULAR HEMOGLOBIN 29.2 pg (27.0-33.0); MEAN CORPUSCULAR HGB CONC 32.4 g/dL (32.0-36.0); MEAN CORPUSCULAR VOLUME 90.3 fL (79-99); MONOCYTES % (AUTO) 3.4 % (3.0-13.0); NEUTROPHILS % (AUTO) 80.8 % (40.0-77.0); PLATELET COUNT (AUTO) 272 K/uL (130-400); RED BLOOD CELL COUNT(AUTO) 2.67 MIL/uL (4.50-6.20); RED CELL DISTRIBUTION WIDTH 13.4 % (11.0-15.5); WHITE BLOOD COUNT (AUTO) 13.7 K/uL (4.8-10.8)
[2021-06-16 05:10] LABS: ALBUMIN 1.7 g/dL (3.5-5.0); BILIRUBIN,TOTAL 0.9 mg/dL (0.2-1.0); CREATININE 5.6 mg/dL (0.5-1.5); MAGNESIUM 2.7 mg/dL (1.80-2.40); TOTAL PROTEIN, SERUM 6.2 g/dL (6.0-8.3)
[2021-06-16] MEDS: INSULIN R NPO SSI SQ SCH ×4 (05:19→18:00)
[2021-06-16] MEDS: FUROSEMIDE 20MG VIAL IV SCH (07:32)
[2021-06-16] MEDS: FAT EMULSIONS 20% 250ML 250 ML IV SCH (07:32)
[2021-06-16] MEDS: LACTULOSE 20 GM/30 ML UDCUP PO SCH ×2 (07:32→21:00)
[2021-06-16] MEDS: HEPARIN 5,000 UNIT VIAL SQ SCH ×2 (07:32→21:04)
[2021-06-16] MEDS ORDERED: COMPOUND IV REFRIGERATED 1 EACH IVSOLN MISC PRN (09:00)
[2021-06-16] MEDS: SIMETHICONE 80 MG TAB.CHEW PO SCH ×3 (09:00→18:09)
[2021-06-16] MEDS: 0.9%NACL 1000ML 1,000 ML IV SCH ×2 (10:10→23:30)
[2021-06-16] MEDS ORDERED: PROPOFOL 10 MG/ML 20ML VIAL IV ONE (10:17)
[2021-06-16] MEDS: ERYTHROMYCIN LACTOBIONATE 250 MG in 0.9%NACL 100ML 100 ML IV SCH ×2 (12:00→15:00)
[2021-06-16] MEDS: PANTOPRAZOLE 40 MG/VIAL IVP SCH (12:22)
[2021-06-16] MEDS: EPOETIN ALFA-EPBX (NON-ESRD) 10,000 UNIT/ML VIAL SQ SCH (12:23)
[2021-06-16] MEDS ORDERED: PHARMACY COMMUNICATION MISC SCH (13:00)
[2021-06-16] MEDS ORDERED: COMPOUND IV MISC 1 EACH IVSOLN MISC PRN (13:30)
[2021-06-16] MEDS ORDERED: M.V.I. IV [ADULT] 10 ML in CLINIMIX-E4.25%AA/D5+LYT2000ML 2,000 ML IV SCH (19:00)
[2021-06-16] MEDS ORDERED: ERYTHROMYCIN LACTOBIONATE 250 MG in 0.9%NACL 100ML 100 ML IV SCH ×4 (20:00)
[2021-06-17] VITALS (35 sets, daily range): BP systolic 92–143; BP diastolic 45–63
[2021-06-17] MEDS: ZOSYN 3.375GM +NS 50ML IV SCH ×2 (03:32→14:45)
[2021-06-17] MEDS: INSULIN R NPO SSI SQ SCH ×3 (06:00→18:00)
[2021-06-17 06:30] LABS: HEMATOCRIT 22.5 % (42-54); MEAN CORPUSCULAR HEMOGLOBIN 30.1 pg (27.0-33.0); MEAN CORPUSCULAR HGB CONC 33.3 g/dL (32.0-36.0); MEAN CORPUSCULAR VOLUME 90.4 fL (79-99); RED BLOOD CELL COUNT(AUTO) 2.49 MIL/uL (4.50-6.20); RED CELL DISTRIBUTION WIDTH 13.8 % (11.0-15.5); WHITE BLOOD COUNT (AUTO) 14.8 K/uL (4.8-10.8)
[2021-06-17 06:36] LABS: CREATININE 5.9 mg/dL (0.5-1.5); POTASSIUM 4.8 mmol/L (3.5-5.1)
[2021-06-17] MEDS: FUROSEMIDE 20MG VIAL IV SCH (08:46)
[2021-06-17] MEDS: LACTULOSE 20 GM/30 ML UDCUP PO SCH ×2 (09:00→21:53)
[2021-06-17] MEDS: SIMETHICONE 80 MG TAB.CHEW PO SCH ×3 (09:00→18:00)
[2021-06-17] MEDS: HEPARIN 5,000 UNIT VIAL SQ SCH ×2 (09:00→21:57)
[2021-06-17] MEDS: PANTOPRAZOLE 40 MG/VIAL IVP SCH (09:05)
[2021-06-17] MEDS ORDERED: PROPOFOL 10 MG/ML 20ML VIAL IV ONE (10:36)
[2021-06-17] MEDS ORDERED: KETAMINE 50MG/ML SYRINGE 50 MG/ML DISP.SYRIN IV ONE (10:49)
[2021-06-17] MEDS ORDERED: MIDAZOLAM HCL 1 MG/ML 2ML VIAL ONE (10:50)
[2021-06-17] MEDS: 0.9%NACL 1000ML 1,000 ML IV SCH (12:50)
[2021-06-17 13:45] LABS: INR 0.93 (0.85-1.15); PROTHROMBIN TIME 10.1 SEC (9.6-11.6)
[2021-06-17 13:46] LABS: PARTIAL THROMBOPLASTIN TIME 27.1 SEC (26.3-35.5)
[2021-06-17] MEDS ORDERED: HEPARIN 1,000 UNIT VIAL ONE (15:44)
[2021-06-17] MEDS ORDERED: LIDOCAINE HCL 400MG/20ML VIAL ONE (15:45)
[2021-06-17] MEDS ORDERED: M.V.I. IV [ADULT] 10 ML in CLINIMIX-E 5%AA /D15%W 2000ML 2,000 ML IV SCH (18:00)
[2021-06-17 18:08] LABS: HEMATOCRIT 21.6 % (42-54)
[2021-06-17 18:27] LABS: ALBUMIN 1.5 g/dL (3.5-5.0); CREATININE 5.8 mg/dL (0.5-1.5)
[2021-06-17 18:45] LABS: % IRON SATURATION 12.5 % (30-44)
[2021-06-17] MEDS: HEPARIN 5,000 UNIT VIAL IJ SCH (20:19)
[2021-06-18] VITALS (17 sets, daily range): BP systolic 110–126; BP diastolic 50–64
[2021-06-18] MEDS: 0.9%NACL 1000ML 1,000 ML IV SCH (02:10)
[2021-06-18] MEDS: ZOSYN 3.375GM +NS 50ML IV SCH ×2 (03:26→14:07)
[2021-06-18 05:13] LABS: BASOPHILS % (AUTO) 0.2 % (0.0-5.0); EOSINOPHILS % (AUTO) 2.1 % (0.0-8.0); HEMATOCRIT 22.9 % (42-54); MEAN CORPUSCULAR HEMOGLOBIN 29.7 pg (27.0-33.0); MEAN CORPUSCULAR HGB CONC 32.3 g/dL (32.0-36.0); NEUTROPHILS % (AUTO) 79.2 % (40.0-77.0); PLATELET COUNT (AUTO) 336 K/uL (130-400); RED BLOOD CELL COUNT(AUTO) 2.49 MIL/uL (4.50-6.20); RED CELL DISTRIBUTION WIDTH 14.1 % (11.0-15.5); WHITE BLOOD COUNT (AUTO) 12.1 K/uL (4.8-10.8)
[2021-06-18 05:30] LABS: ALBUMIN 1.6 g/dL (3.5-5.0); BILIRUBIN,TOTAL 0.8 mg/dL (0.2-1.0); CREATININE 4.9 mg/dL (0.5-1.5); PHOSPHORUS 7.8 mg/dL (2.5-4.9); POTASSIUM 3.7 mmol/L (3.5-5.1); TOTAL PROTEIN, SERUM 6.3 g/dL (6.0-8.3)
[2021-06-18] MEDS: INSULIN R NPO SSI SQ SCH ×4 (06:00→18:00)
[2021-06-18 08:36] LABS: HEPATITIS B SURFACE ANTIGEN Non-Reactive (Negative)
[2021-06-18] MEDS: FUROSEMIDE 20MG VIAL IV SCH (09:41)
[2021-06-18] MEDS: PANTOPRAZOLE 40 MG/VIAL IVP SCH (09:41)
[2021-06-18] MEDS: SIMETHICONE 80 MG TAB.CHEW PO SCH ×2 (09:42→12:21)
[2021-06-18] MEDS: LACTULOSE 20 GM/30 ML UDCUP PO SCH ×2 (09:42→19:55)
[2021-06-18] MEDS: FAT EMULSIONS 20% 250ML 250 ML IV SCH (10:57)
[2021-06-18] MEDS: HEPARIN 5,000 UNIT VIAL SQ SCH ×2 (11:29→19:57)
[2021-06-18] MEDS: EPOETIN ALFA-EPBX (NON-ESRD) 10,000 UNIT/ML VIAL SQ SCH (11:42)
[2021-06-18] MEDS: HEPARIN 5,000 UNIT VIAL IJ SCH ×2 (15:00→19:54)
[2021-06-19] VITALS (21 sets, daily range): BP systolic 114–146; BP diastolic 54–82
[2021-06-19] MEDS: ZOSYN 3.375GM +NS 50ML IV SCH ×2 (01:53→14:00)
[2021-06-19 05:28] LABS: BASOPHILS % (AUTO) 0.3 % (0.0-5.0); EOSINOPHILS % (AUTO) 2.2 % (0.0-8.0); LYMPHOCYTES % (AUTO) 16.3 % (21.0-51.0); MEAN CORPUSCULAR HEMOGLOBIN 28.9 pg (27.0-33.0); MEAN CORPUSCULAR VOLUME 90.4 fL (79-99); MONOCYTES % (AUTO) 4.7 % (3.0-13.0); NEUTROPHILS % (AUTO) 75.6 % (40.0-77.0); PLATELET COUNT (AUTO) 351 K/uL (130-400); RED BLOOD CELL COUNT(AUTO) 2.28 MIL/uL (4.50-6.20); WHITE BLOOD COUNT (AUTO) 10.4 K/uL (4.8-10.8)
[2021-06-19 05:34] LABS: HEMATOCRIT 20.6 % (42-54)
[2021-06-19 05:47] LABS: ALBUMIN 1.6 g/dL (3.5-5.0); BILIRUBIN,TOTAL 0.7 mg/dL (0.2-1.0); CREATININE 4.3 mg/dL (0.5-1.5); POTASSIUM 3.5 mmol/L (3.5-5.1); TOTAL PROTEIN, SERUM 6.4 g/dL (6.0-8.3)
[2021-06-19] MEDS: INSULIN R NPO SSI SQ SCH ×4 (06:00→18:00)
[2021-06-19] MEDS: FUROSEMIDE 20MG VIAL IV SCH (09:00)
[2021-06-19] MEDS: SIMETHICONE 80 MG TAB.CHEW PO SCH ×3 (09:00→19:39)
[2021-06-19] MEDS: PANTOPRAZOLE 40 MG/VIAL IVP SCH (10:37)
[2021-06-19] MEDS: HEPARIN 5,000 UNIT VIAL SQ SCH (10:39)
[2021-06-19] MEDS: LACTULOSE 20 GM/30 ML UDCUP PO SCH (11:14)
[2021-06-19] MEDS ORDERED: M.V.I. IV [ADULT] 10 ML in CLINIMIX-E4.25%AA/D5+LYT2000ML 2,000 ML IV SCH (13:00)
[2021-06-19] MEDS: HEPARIN 5,000 UNIT VIAL IJ SCH (16:06)
[2021-06-20] MEDS ORDERED: FAT EMULSIONS 20% 250ML 250 ML IV SCH (09:00)
== END 2021-06-19 20:08 | disposition short-term general hospital (02) | DRG 389 ==
LOC: EDH 16:30 → UNDOADMOB 19:23 → OBSVTOIN 19:23 → INTOOBSV 19:23 → EDHIP 19:23 → OBSVTOIN 19:28 → EDHIP 19:28 → 3BH 22:47
PROVIDERS: ADMIT Internal Medicine Nephrology; ATTEND Internal Medicine Nephrology
PROC: 0D9670Z Drainage of Stomach with Drainage Device, Via Natural or Artificial Opening (ICD-10-PCS; 2021-06-01)
PROC: 0DJ08ZZ Inspection of Upper Intestinal Tract, Via Natural or Artificial Opening Endoscopic (ICD-10-PCS; principal; 2021-06-16)
PROC: 0DJD8ZZ Inspection of Lower Intestinal Tract, Via Natural or Artificial Opening Endoscopic (ICD-10-PCS; 2021-06-17)
PROC: 02HV33Z Insertion of Infusion Device into Superior Vena Cava, Percutaneous Approach (ICD-10-PCS; 2021-06-17)
PROC: B5181ZA Fluoroscopy of Superior Vena Cava using Low Osmolar Contrast, Guidance (ICD-10-PCS; 2021-06-17)
PROC: B548ZZA Ultrasonography of Superior Vena Cava, Guidance (ICD-10-PCS; 2021-06-17)
PROC: 5A1D70Z Performance of Urinary Filtration, Intermittent, Less than 6 Hours Per Day (ICD-10-PCS; 2021-06-17)
PROC: 5A1D70Z Performance of Urinary Filtration, Intermittent, Less than 6 Hours Per Day (ICD-10-PCS; 2021-06-18)
PROC: 30233N1 Transfusion of Nonautologous Red Blood Cells into Peripheral Vein, Percutaneous Approach (ICD-10-PCS; 2021-06-19)
PROC: 5A1D70Z Performance of Urinary Filtration, Intermittent, Less than 6 Hours Per Day (ICD-10-PCS; 2021-06-19)
DX: K56.600 Partial intestinal obstruction, unspecified as to cause (principal); C18.9 Malignant neoplasm of colon, unspecified; N17.9 Acute kidney failure, unspecified; E87.0 Hyperosmolality and hypernatremia; J90 Pleural effusion, not elsewhere classified; N18.4 Chronic kidney disease, stage 4 (severe); K81.0 Acute cholecystitis; E87.1 Hypo-osmolality and hyponatremia; A04.72 Enterocolitis due to Clostridium difficile, not specified as recurrent; Z68.1 Body mass index [BMI] 19.9 or less, adult; Z20.822 Contact with and (suspected) exposure to COVID-19; Z85.038 Personal history of other malignant neoplasm of large intestine; D50.9 Iron deficiency anemia, unspecified; K21.00 Gastro-esophageal reflux disease with esophagitis, without bleeding; Z93.3 Colostomy status; I12.9 Hypertensive chronic kidney disease with stage 1 through stage 4 chronic kidney disease, or unspecified chronic kidney disease; E66.9 Obesity, unspecified; R53.81 Other malaise; K59.00 Constipation, unspecified; Z99.2 Dependence on renal dialysis; Z90.49 Acquired absence of other specified parts of digestive tract; E87.6 Hypokalemia; K29.70 Gastritis, unspecified, without bleeding; K31.89 Other diseases of stomach and duodenum; Z95.1 Presence of aortocoronary bypass graft
CPT/HCPCS: 36415; 36556; 43235; 44388; 71045; 74018; 74176; 74250; 76705; 77001; 78227; 80048; 80053; 80061; 81001; 81003; 82040; 82565; 82728; 82948; 83540; 83550; 83605; 83690; 83735; 84100; 84295; 84484; 84520; 85014; 85018; 85025; 85027; 85610; 85730; 86701; 86704; 86706; 86850; 86900; 86901; 86923; 87088; 87324; 87340; 87390; 87635; 90935; 93005; 97039; A4606; A9537; C1752; C1894; C9113; G0378; J1364; J1644; J1940; J2250; J2270; J2405; J2543; J2704; J3480; J3490; J7030; J7042; J7060; J7070; P9016; Q9963